=== PATIENT | female | born 1945 | race Caucasian/White ===

== ENCOUNTER 2016-08-13 10:29 | Inpatient (IN) | payer OTHER, MEDICARE ==
[2016-07-16 09:45] VITALS: BMI 40.0
--- NOTE | 2016-07-16 10:22 | PAT Medication Instructions ---
Service Date Jul 16, 2016. Current Home Medication List Acetaminophen Tab (Tylenol), 650 MG PO Q4 PRN for Pain Gabapentin (Neurontin), 300 MG PO BID Hydrochlorothiazide (Hctz), 1 TAB PO QAM Lisinopril (Lisinopril), 40 MG PO QAM Metoprolol Succ (Toprol Xl) (Toprol-Xl), 1 TAB PO BID Pravastatin (Pravachol ), 40 MG PO QPM Ranitidine (Zantac), 1 TAB PO BID Verapamil Sust Rel (Calan Sr Ext Rel), 240 MG PO HS Warfarin Sod (Jantoven), 1.5 MG PO 1600 Medication Instructions For Your Scheduled Surgery - Instructions to be given by prescribing physician: Warfarin Sod (Coumadin), 1.5 MG PO 1600 - Hold the following medications the morning of surgery: Hydrochlorothiazide (Hctz), 1 TAB PO QAM Lisinopril (Lisinopril), 40 MG PO QAM - Take the following medications the morning of surgery with a sip of water OTHERWISE NOTHING TO EAT OR DRINK AFTER MIDNIGHT : Acetaminophen Tab (Tylenol), 650 MG PO Q4 PRN for Pain (may take up to 4 hours prior to surgery if needed) Ranitidine (Zantac), 1 TAB PO BID Gabapentin (Neurontin), 300 MG PO BID Metoprolol Succ (Toprol Xl) (Toprol-Xl), 1 TAB PO BID - Take the following medications as scheduled the night before surgery: Acetaminophen Tab (Tylenol), 650 MG PO Q4 PRN for Pain Ranitidine (Zantac), 1 TAB PO BID Gabapentin (Neurontin), 300 MG PO BID Metoprolol Succ (Toprol Xl) (Toprol-Xl), 1 TAB PO BID Pravastatin (Pravachol ), 40 MG PO QPM Verapamil Sust Rel (Calan Sr Ext Rel), 240 MG PO HS If you have any questions please call us at [phone] (Ana Laura Goncalves PA-C ) or [phone] or [phone]
--- NOTE | 2016-07-16 10:54 | DIAGNOSTIC IMAGING REPORT ---
CHEST PREADMISSION(PA/LAT) CLINICAL HISTORY: Preoperative evaluation. COMPARISON STUDY: No previous studies for comparison. FINDINGS: Lung volumes are normal. There is no consolidation. There is no evidence of pulmonary edema. There are median sternotomy wires, a dual lead left subclavian pacemaker and a prosthetic cardiac valve. Mild cardiomegaly is noted. There is no evidence of pulmonary edema. IMPRESSION: 1. No acute cardiopulmonary findings. 2. Mild cardiomegaly. Electronically signed by: Dakotah Zambrano M.D. 07/16/2016 10:52 AM
[2016-07-16 11:16] LABS: BASO % 0.1 %; BASO ABS # 0.01 K/uL (0-0.2); COMPLETE YES; EOS % 2.2 %; IG% 0.1 %; LYMPH % 30.7 %; LYMPH ABS # 2.05 K/uL (1.2-3.4); MEAN CELL VOLUME 87.6 fL (80-100); MEAN CORPUSCULAR HEMOGLOBIN 28.2 pg (25-34); MEAN CORPUSCULAR HGB CONC 32.2 g/dl (32-36); MEAN PLATELET VOLUME 10.4 fL (7.4-10.4); MONO % 9.1 %; NEUT % 57.8 %; PLATELET COUNT 220 K/uL (130-400); RED BLOOD COUNT 4.11 M/uL (4.2-5.4); WHITE BLOOD COUNT 6.68 K/uL (4.8-10.8)
[2016-07-16 11:17] LABS: URINE APPEARANCE CLEAR (CLEAR); URINE BILIRUBIN NEG (NEG); URINE COLOR YELLOW; URINE NITRITE NEG (NEG); URINE PH 6.5 (4.5-7.5); URINE SPECIFIC GRAVITY 1.017 (1.000-1.030); UROBILINOGEN NEG (NEG)
[2016-07-16 11:32] LABS: MANUAL MICROSCOPIC REQUIRED? NO; REVIEW REQ? NO
[2016-07-16 11:46] LABS: BUN/CREATININE RATIO 22.2 (10-20); CREATININE 0.72 mg/dl (0.60-1.20); POTASSIUM 3.9 mmol/L (3.5-5.1)
[2016-07-16 12:05] LABS: CALCIUM 9.2 mg/dl (8.5-10.1)
--- NOTE | 2016-08-09 16:09 | HISTORY & PHYSICAL EXAMINATION ---
DATE OF ADMISSION: 08/13/2016 HISTORY OF PRESENT ILLNESS: This is a 70-year-old female with complaint of back and bilateral leg pain. Symptoms are reproduced with standing and ambulation. She has trialed nonoperative care with only moderate relief. Denies bowel or bladder dysfunction. PAST MEDICAL HISTORY: Significant for hypertension and irregular heartbeat. PAST SURGICAL HISTORY: Significant for open heart surgery, pacemaker implant, and x2. ALLERGIES: None. MEDICATIONS: Include metoprolol, hydrochlorothiazide, ranitidine, VESIcare, verapamil extended release, pravastatin, aspirin, lisinopril, and oxybutynin, all dosages unknown. SOCIAL HISTORY: She is . She has 2 children. Denies alcohol. Denies tobacco. She is retired. REVIEW OF SYSTEMS: Noncontributory. PHYSICAL EXAMINATION: HEENT: Speech appropriate. CARDIOPULMONARY: No gross abnormalities. ABDOMEN: Soft, nontender. GENITOURINARY: Deferred. NEUROLOGIC: Cranial nerves II-XII grossly intact. MUSCULOSKELETAL: She moves slowly around the room. No focal atrophy. LOWER EXTREMITY: Strength is intact bilateral lower extremities. ASSESSMENT: Vacuum phenomenon at L4-5, severe stenosis L4-5 and foraminal stenosis L5-S1. PLAN: At this point in time, she has failed nonoperative care and may consider surgical intervention which would require lumbar decompression and fusion L2-3, L3-4, L4-5 and L5-S1. Risks, benefits, pros, cons, and alternatives were outlined in detail. She would like to proceed with the above-mentioned surgical intervention.
[~2016-08-13] VITALS: Ht 160 cm; Wt 104.6 kg
--- NOTE | 2016-08-13 07:28 | History & Physical Bridge Note ---
H&P Re-Evaluation Bridge Note: I have examined the patient, reviewed the History & Physical and in the interval since the performance of the History & Physical I have noted the following changes of clinical significance: No changes noted
[~2016-08-13 10:29] MED LIST: ACET325T96 PO; CEFAZOLIN 2000 MG/60 ML D5W IV SCH; GABA-113 PO; HYDR25TA4 PO; LACTATED RINGER'S 1000ML 1,000 ML IV SCH; LSN40 PO; METO50TA7 PO; PRAV20TA PO; VERA240T20 PO; WARF1TAB6 PO; ZNTT/150 PO
[2016-08-13 10:51] VITALS: BP 133/82; PULSE 66; TEMP 36.5; O2SAT 97; BMI 40.0
[2016-08-13] MEDS ORDERED: FENTANYL CITRATE INJ 50 MCG/1 ML 2 ML VIAL ONE ×3 (11:30→13:07)
[2016-08-13] MEDS ORDERED: MIDAZOLAM HCL 1 MG/ML 2ML VIAL ONE (11:31)
[2016-08-13] MEDS ORDERED: HYDROmorphone INJ 2 MG/ML SYR/VIAL ONE (13:07)
[2016-08-13] MEDS ORDERED: BUPIVACAINE/EPINEPHRINE 0.5% MPF 1:200,000 30 ML VIAL INJ ONE (13:20)
[2016-08-13] MEDS ORDERED: GLYCOPYRROLATE INJ 0.2 MG/ML VIAL ONE (13:27)
[2016-08-13] MEDS ORDERED: DEXAMETHASONE SOD INJ 4 MG/ML VIAL ONE (13:27)
[2016-08-13] MEDS ORDERED: LIDOCAINE HCL 2% 2 ML VIAL (20MG/ML) ONE (13:27)
[2016-08-13] MEDS ORDERED: NEOSTIGMINE METHYLSULFATE 1 MG/ML 10ML VIAL ONE (13:27)
[2016-08-13] MEDS ORDERED: PROPOFOL IV EMULSION 10 MG/ML 20 ML VIAL IV ONE (13:27)
[2016-08-13] MEDS ORDERED: ONDANSETRON INJ 2 MG/ML 2 ML VIAL ONE (13:27)
[2016-08-13] MEDS ORDERED: EpHEDrine SULFATE 50MG/5ML SYR ONE (13:27)
[2016-08-13] MEDS ORDERED: ROCURONIUM BROMIDE 10 MG/ML 5 ML VIAL ONE (13:27)
[2016-08-13] MEDS ORDERED: PHENYLEPHRINE 100MCG/ML 5ML SYR ONE ×2 (13:40→14:50)
[2016-08-13] MEDS ORDERED: LABETALOL HCL IV 5 MG/ML 20ML IV PRN (14:45)
[2016-08-13] MEDS ORDERED: ONDANSETRON INJ 2 MG/ML 2 ML VIAL IV PRN ×2 (14:45→15:30)
[2016-08-13] MEDS ORDERED: HYDROmorphone INJ 1 MG/ML SYR IV PRN (14:45)
[2016-08-13] MEDS ORDERED: EpHEDrine SULFATE INJ 50 MG/ML AMP IV PRN (14:45)
[2016-08-13] MEDS ORDERED: ATROPINE SULFATE 0.1 MG/ML 5ML SYR IV PRN (14:45)
[2016-08-13] MEDS ORDERED: FENTANYL CITRATE INJ 50 MCG/1 ML 2 ML VIAL IV PRN (14:45)
[2016-08-13] MEDS ORDERED: MEPERIDINE HCL 25 MG/ML CARP IV PRN (14:45)
[2016-08-13] MEDS ORDERED: VOLUVEN IN NSS ONE (15:03)
[2016-08-13] MEDS ORDERED: SODIUM CHLORIDE 0.9% 1000ML 1,000 ML IV SCH (15:21)
--- NOTE | 2016-08-13 15:21 | [facility] Post Operative Brief Note ---
Immediate Operative Summary Operative Date Aug 13, 2016. Pre-Operative Diagnosis Vacuum phenomenon at L4-L5; Severe stenosis L4-L5; Foraminal stenosis L5-S1 Post-Operative Diagnosis Vacuum phenomenon at L4-L5; Severe stenosis L4-L5; Foraminal stenosis L5-S1 Procedure(s) Performed L2-S1 Lumbar Laminectomy; Decompression; Pedicle Screw Fixation; Placement of Interbody Device; Posterolateral Fusion;Bone Morphogenetic Protein; Iliac [place] Fixation; [place] Surgeon Dr. Karthikeyan Strauss Abalone Fisherman Surgeon(s) Nancy Alvarado PA-C Estimated Blood Loss 500 Findings stenosis Specimens None per surgeon
[2016-08-13] MEDS ORDERED: BACITRACIN 50000 UNIT VIAL IR ONE (15:29)
[2016-08-13] MEDS ORDERED: hydrOXYzine HCL 25 MG TAB PO PRN (15:30)
[2016-08-13] MEDS ORDERED: ACETAMINOPHEN IV 100 ML IV PRN (15:30)
[2016-08-13] MEDS ORDERED: DO NOT ADMINISTER FLU VACCINE PRN ×3 (15:30)
[2016-08-13] MEDS ORDERED: SOD PHOSPHATE/SOD BIPHOSPHATE ENEMA 132 ML BTL PR PRN (15:30)
[2016-08-13] MEDS ORDERED: ACETAMINOPHEN 500 MG TAB PO PRN (15:30)
[2016-08-13] MEDS ORDERED: METOCLOPRAMIDE HCL INJ 5 MG/ML 2 ML VIAL IV PRN (15:30)
[2016-08-13] MEDS ORDERED: BISACODYL 10 MG SUPP PR PRN (15:30)
[2016-08-13] MEDS ORDERED: PROMETHAZINE HCL INJ 12.5 MG in SODIUM CHLORIDE 0.9% 50ML 50 ML IV PRN (15:30)
[2016-08-13] MEDS ORDERED: LORAZEPAM INJ 0.5 MG in SYRINGE 0 ML IV PRN (15:30)
[2016-08-13] MEDS ORDERED: NALOXONE HCL 0.4 MG/1 ML VIAL/CARP IV PRN ×2 (15:30)
[2016-08-13] MEDS ORDERED: ALUMINUM/MAGNESIUM SUSP 30 ML UDC PO PRN (15:30)
[2016-08-13] MEDS ORDERED: LORAZEPAM 0.5 MG TAB PO PRN (15:30)
[2016-08-13] MEDS ORDERED: FAMOTIDINE 20 MG TAB PO PRN (15:30)
[2016-08-13] MEDS ORDERED: MAGNESIUM HYDROXIDE SUSP 30 ML UDC PO PRN (15:30)
[2016-08-13] MEDS ORDERED: DO NOT ADMINISTER PNEUMOCOCCAL VACCINE PRN ×2 (15:30)
[2016-08-13] MEDS ORDERED: FLOSEAL HEMOSTATIC MATRIX 10ML TOP ONE (15:32)
--- NOTE | 2016-08-13 15:53 | OPERATIVE REPORT ---
DATE OF OPERATION: 08/13/2016 PREOPERATIVE DIAGNOSIS: Spinal stenosis. POSTOPERATIVE DIAGNOSIS: Same. PROCEDURES PERFORMED: 1. Lumbar decompression, medial facetectomy, and foraminotomy, L2-L3, L3-L4, L4-L5, and L5-S1. 2. Posterior spinal fusion, L2-L3, L3-L4, L4-L5, and L5-S1. 3. Bilateral posterior SI joint fusions. 4. Placement of posterior segmental instrumentation using Orthros rods and screws, L2 to S1 including bilateral iliac bolts. 5. Interbody fusion, L4-L5. 6. Placement of PEEK cage 10 x 26 mm at L4-L5. 7. Placement of locally harvested morcellized autograft in the posterior gutters 8. Placement of Infuse collagen sponge combined with Mastergraft in the posterior gutters and Yu in the interbody space. SURGEON: Dr. Karthikeyan Strauss. CLINICAL SAFETY SPECIALIST: Nancy Alvarado PA-C. Due to the complex nature of the procedure, the entire surgery was performed with the assistant director of residence life of BALTAZAR Ortiz. The assistant professor nurse education, under direct supervision, was involved in the actual performance of all aspects of the surgical procedure including hemostasis, tissue retraction and incision, instrument management, patient positioning, and wound closure. ANESTHESIA: General. DISPOSITION: The patient awakened and taken to PACU in stable condition. HISTORY OF PATIENT'S PROBLEMS: This is a 70-year-old female that presents with above-mentioned diagnosis. After failing an extensive course of nonoperative care, she elected to undergo the above-mentioned procedures. Risks, benefits, pros, cons, and alternatives were outlined in detail preoperatively. DESCRIPTION OF PROCEDURE: The patient was met with preoperatively, case discussed and all questions were addressed. At that point, the patient was taken back to operative suite and after undergoing successful general intubation by the department of anesthesia, she was placed in prone position on William table atop Mitchel frame. All bony prominences were well padded and the eyes were inspected to ensure there was no external pressure placed upon them. At this point, lumbar spine was prepped and draped in the normal sterile fashion. Sharp dissection with the assistance of Bovie cautery was performed down to and exposing the lamina and transverse processes of L2, L3, L4, L5 and sacral ala bilaterally. From a caudal to cephalad fashion, laminectomy of L5, L4, L3 and L2 was performed addressing severe lateral recess and foraminal stenosis. Pedicle screws were then placed in L2, L3, L4, L5 and S1 levels as well as bilateral iliac bolts. Again, through a transforaminal approach on the left, a complete diskectomy of L4-L5 was performed, endplates curetted to subcortical bleeding bone and a 10 x 26 mm PEEK cage filled with Yu bone grafting tapped into position. Appropriate size rods were then placed, locked into final position bilaterally and transverse processes of L2, L3, L4, L5 and sacral ala and the bilateral SI joints were burred to subcortical bleeding bone. Infuse collagen sponge combined with Mastergraft and locally harvested morselized was packed in the SI joints in the posterolateral gutters. A 7 flat ZACH drain was inserted. Incision was closed with 1-0 Vicryl in the fascia, 2-0 Vicryl subcutaneously, and 4-0 Monocryl for final skin closure. Steri-Strips and sterile dressing placed. The patient was awakened and taken to PACU in stable condition. I attest to the content of the Intraoperative Record and any orders documented therein. Any exceptio ns are noted below.
--- NOTE | 2016-08-13 15:54 | DIAGNOSTIC IMAGING REPORT ---
INTRAOPERATIVE FLUOROSCOPIC IMAGES OF THE LUMBAR SPINE CLINICAL HISTORY: L2-S1 DECOMPRESSION COMPARISON STUDY: CT lumbar myelogram April 25, 2016 Fluoroscopy time: 36.5 seconds. FINDINGS: 4 fluoroscopic images were obtained. These demonstrate an L4-L5 discectomy with interbody spacer placement. There are bilateral pedicle screws at the L2, L3, L4, L5 and S1 levels. There are iliac bolts. There are interconnecting rods. IMPRESSION: Fluoroscopic images demonstrate an L4-L5 discectomy and L2-S1 bilateral pedicle screw fusion. Electronically signed by: Dakotah Zambrano M.D. 08/13/2016 3:52 PM Dictated Date/Time: 08/13/2016 3:50 PM
[2016-08-13] MEDS: HYDROmorphone HCL 0.5MG/ML 50 ML CASSETTE IV PRN ×3 (16:00→22:50)
--- NOTE | 2016-08-13 16:46 | Anesthesiology Progress Note ---
Anesthesia Post Op Note Date & Time Aug 13, 2016 at 16:45 Vital Signs Pain Intensity: 3 Vital Signs Past 12 Hours Date Time Temp Pulse Resp B/P Pulse Ox O2 Delivery O2 Flow Rate FiO2 08/13/16 16:30 68 18 141/52 96 Nasal Cannula 4 08/13/16 16:20 68 18 141/57 94 Nasal Cannula 4 08/13/16 16:10 67 18 145/47 91 Mask 10 08/13/16 16:00 75 18 155/59 97 Mask 10 08/13/16 15:52 37.1 80 14 161/73 98 Mask 10 08/13/16 10:51 36.5 66 20 133/82 97 Room Air Notes Mental Status: alert / awake / arousable, participated in evaluation Pt Amnestic to Procedure: Yes Nausea / Vomiting: adequately controlled Pain: adequately controlled Airway Patency, RR, SpO2: stable & adequate BP & HR: stable & adequate Hydration State: stable & adequate Anesthetic Complications: no major complications apparent
[2016-08-13] MEDS: LACTATED RINGER'S 1000ML 1,000 ML IV SCH ×2 (17:30→23:00)
[2016-08-13 17:40] VITALS: BP 126/48; PULSE 69; TEMP 36.4; O2SAT 96
[2016-08-13 18:11] VITALS: BP 119/64; PULSE 71; TEMP 36.4; O2SAT 96
--- NOTE | 2016-08-13 18:47 | Medical Consult ---
Consultation Date of Consultation: Aug 13, 2016. Attending Physician: Karthikeyan Strauss D.O. Reason for Consultation: medical mgmt History of Present Illness This is a 70 y/o female with PMHx of Atrial Fibrillation on Coumadin, HTN, Dyslipidemia and other problems as outlined below who presents POD 0 s/p lumbar decompression performed by Dr. Strauss. Pt was nauseated post-operatively and vomited twice. Per , patient always feels this way after anesthesia. Pt is still very groggy. She is comfortable laying still but having lower back discomfort with movement. Pt denies fever/chills, chest pain, palpitations, SOB , abd pain, bowel or bladder issues, LE edema ,calf pain, lightheadedness/ dizziness. Past Medical/Surgical History Medical Problems: (1) Atrial fibrillation Status: Chronic (2) Dyslipidemia Status: Chronic (3) GERD (gastroesophageal reflux disease) Status: Chronic (4) HTN (hypertension) Status: Chronic Surgical Problems: (1) History of orthopedic surgery Permanent Comment: R thumb fusion; 2003 Status: Resolved (2) Hx of decompressive lumbar laminectomy Permanent Comment: 08/13/16 Dr. Strauss Status: Resolved Social History Smoking Status: Never Smoker Alcohol Use: none Drug Use: none Marital Status: Housing Status: lives with family Allergies Coded Allergies: Oxycodone (Verified Adverse Reaction, Unknown, nausea,hallucinations, 08/13) Home Medications Active Reported Neurontin (Gabapentin) 300 Mg Cap 300 Mg PO BID Tylenol (Acetaminophen) 325 Mg Tab 650 Mg PO Q4 PRN Jantoven (Warfarin Sodium) 1 Mg Tab 1.5 Mg PO 1600 Calan Sr Ext Rel (Verapamil HCl) 240 Mg Tabcr 240 Mg PO HS Pravachol (Pravastatin Sodium) 20 Mg Tab 40 Mg PO QPM Lisinopril 40 Mg Tab 40 Mg PO QAM Zantac (Ranitidine HCl) 150 Mg Tab 1 Tab PO BID 30 Days Hctz (Hydrochlorothiazide) 25 Mg Tab 1 Tab PO QAM 30 Days Toprol-Xl (Metoprolol Succinate) 50 Mg Tabcr 1 Tab PO BID 30 Days Current Inpatient Medications Current Inpatient Medications Medications (Trade) Dose Ordered Sig/Francois Route Start Time Stop Time Status Last Admin Dose Admin Lactated Ringer's (Lr 1000ml) 1,000 ml @ 15 mls/hr Q24H IV 08/13/16 06:00 08/14/16 05:59 08/13/16 11:50 15 MLS/HR Fentanyl Citrate (Fentanyl Inj) 50 mcg Q5M PRN IV 08/13/16 14:45 08/13/16 19:45 08/13/16 16:07 50 MCG Hydromorphone HCl (Dilaudid Inj) 0.5 mg Q5M PRN IV 08/13/16 14:45 08/13/16 19:45 Meperidine HCl (Demerol Inj) 25 mg Q5M PRN IV 08/13/16 14:45 08/13/16 19:45 Ondansetron HCl (Zofran Inj) 4 mg ONE PRN IV 08/13/16 14:45 08/13/16 19:45 08/13/16 16:28 4 MG Labetalol HCl (Normodyne IV) 5 mg Q5M PRN IV 08/13/16 14:45 08/13/16 19:45 Ephedrine Sulfate (EpHEDrine SULFATE INJ) 5 mg Q5M PRN IV 08/13/16 14:45 08/13/16 19:45 Atropine Sulfate 0.5 mg 0.5 mg Q1M PRN IV 08/13/16 14:45 08/13/16 19:45 Dexamethasone Sodium Phosphate 6 mg/Syringe 1.5 ml @ 1 mls/min Q8H IV 08/13/16 20:00 08/14/16 12:02 Promethazine HCl/ Sodium Chloride (Phenergan Inj/ Nss 50ml) 50.5 ml @ 202 mls/hr Q6H PRN IV 08/13/16 15:30 09/12/16 15:29 Ondansetron HCl (Zofran Inj) 4 mg Q6H PRN IV 08/13/16 15:30 09/12/16 15:29 Metoclopramide HCl (Reglan Inj) 10 mg Q6H PRN IV 08/13/16 15:30 09/12/16 15:29 Lorazepam 0.5 mg 0.5 mg Q8H PRN PO 08/13/16 15:30 09/12/16 15:29 Lorazepam/Syringe (Ativan Inj/ Syringe) 0.25 ml @ 1 mls/min Q8H PRN IV 08/13/16 15:30 09/12/16 15:29 Pneumococcal Polysaccharide Vaccine 1 ea PRN PRN N/A 08/13/16 15:30 09/12/16 15:29 Influenza Virus Vacc Triv Types A&B 1 ea PRN PRN N/A 08/13/16 15:30 09/12/16 15:29 Polyethylene (Miralax Powder Packet) 17 gm Q6 PO 08/15/16 06:00 09/14/16 05:59 Bisacodyl (Dulcolax Supp) 10 mg DAILY PRN ND 08/13/16 15:30 09/12/16 15:29 Magnesium Hydroxide (Milk Of Magnesia Susp) 30 ml DAILY PRN PO 08/13/16 15:30 09/12/16 15:29 Hydromorphone HCl (Dilaudid Inj) 0.5 mg Q3H PRN IV 08/14/16 06:00 08/28/16 05:59 Acetaminophen/ Hydrocodone Bitart 1-2 tabs prn moder... Q4H PRN PO 08/14/16 06:00 08/28/16 05:59 Cefazolin Sodium 2000 mg/Dextrose 60 ml @ 100 mls/hr Q8H IV 08/13/16 20:00 08/14/16 04:35 Lactated Ringer's (Lr 1000ml) 1,000 ml @ 150 mls/hr Q6H40M IV 08/13/16 17:30 09/12/16 17:29 Acetaminophen 1000 mg 1,000 mg Q8H PRN PO 08/13/16 15:30 09/12/16 15:29 Acetaminophen (Ofirmev Iv) 100 ml @ 400 mls/hr Q8H PRN IV 08/13/16 15:30 09/12/16 15:29 Naloxone HCl (Narcan Inj) 0.1 mg Q5M PRN IV 08/13/16 15:30 09/12/16 15:29 Senna/Docusate Sodium (Senokot S Tab) 2 tab HS PO 08/13/16 21:00 09/12/16 20:59 Sodium Biphosphate/ Sodium Phosphate (Fleet Enema) 132 ml ONE PRN ND 08/13/16 15:30 09/12/16 15:29 Hydroxyzine HCl (Vistaril Tab) 25 mg Q8H PRN PO 08/13/16 15:30 09/12/16 15:29 Al Hydroxide/Mg Hydroxide (Maalox Susp) 30 ml Q6H PRN PO 08/13/16 15:30 09/12/16 15:29 Famotidine (Pepcid Tab) 20 mg Q12H PRN PO 08/13/16 15:30 09/12/16 15:29 Diphenhydramine HCl (Benadryl Cap) 25 mg Q6H PRN PO 08/13/16 15:30 09/12/16 15:29 Miscellaneous Information (Discontinue COUNSELING SERVICES DIRECTOR) 1 ea TODAY@0600 N/A 08/14/16 06:00 08/14/16 06:01 Naloxone HCl (Narcan Inj) 0.1 mg Q5M PRN IV 08/13/16 15:30 08/14/16 06:00 Hydromorphone HCl 25 mg 25 mg PRN PRN IV 08/13/16 15:30 08/14/16 06:00 08/13/16 17:14 25 MG Sodium Chloride (Nss 1000ml) 1,000 ml @ 15 mls/hr Q24H IV 08/13/16 15:21 08/14/16 06:00 Gabapentin (Neurontin Cap) 300 mg BID PO 08/13/16 21:00 09/12/16 20:59 Hydrochlorothiazide (Hydrochlorothiazide Tab) 25 mg QAM PO 08/14/16 09:00 09/13/16 08:59 Lisinopril (Zestril Tab) 40 mg QAM PO 08/14/16 09:00 09/13/16 08:59 Metoprolol Succinate (Toprol Xl Tab) 50 mg BID PO 08/13/16 21:00 09/12/16 20:59 Pravastatin Sodium (Pravachol Tab) 40 mg QPM PO 08/13/16 21:00 09/12/16 20:59 Ranitidine HCl (zANTac TAB) 150 mg BID PO 08/13/16 21:00 09/12/16 20:59 Verapamil HCl (Calan-Sr Tab) 240 mg HS PO 08/13/16 21:00 09/12/16 20:59 Hydromorphone HCl (Dilaudid Inj) 1 mg Q3H PRN IV 08/14/16 06:00 08/28/16 05:59 Review of Systems Constitutional: + fatigue, No chills, No fever, No sweats, No weakness Eyes: No worsening of vision Respiratory: No cough, No shortness of breath Cardiovascular: No chest pain, No claudication, No edema, No palpitations Abdomen: + nausea, + vomiting, No constipation, No diarrhea, No pain Musculoskeletal: No calf pain, No swelling Genitourinary - Female: No dysuria Neurologic: No weakness Psychiatric: No depression symptoms Endocrine: + fatigue Hematologic / Lymphatic: No abnormal bleeding/bruising Integumentary: No new/changing skin lesions Physical Exam Date Time Temp Pulse Resp B/P Pulse Ox O2 Delivery O2 Flow Rate FiO2 08/13/16 16:50 36.4 73 18 145/54 96 Nasal Cannula 4 08/13/16 16:40 36.4 78 18 135/63 96 Nasal Cannula 4 08/13/16 16:30 68 18 141/52 96 Nasal Cannula 4 08/13/16 16:20 68 18 141/57 94 Nasal Cannula 4 08/13/16 16:10 67 18 145/47 91 Mask 10 08/13/16 16:00 75 18 155/59 97 Mask 10 08/13/16 15:52 37.1 80 14 161/73 98 Mask 10 08/13/16 10:51 36.5 66 20 133/82 97 Room Air General Appearance: WD/WN, no apparent distress, + pertinent finding (Pt is laying in bed ) Head: normocephalic, atraumatic Eyes: normal inspection ENT: hearing grossly normal Neck: supple Respiratory/Chest: chest non-tender, lungs clear (auscultated anteriorly), normal breath sounds, no respiratory distress Cardiovascular: regular rate, rhythm, no edema, no murmur Abdomen/GI: normal bowel sounds, non tender, soft Back: + pertinent finding (surgical dressing in place over lumbar spine with 1 drain noted containing blood ) Extremities/Musculoskelatal: normal inspection (SCDs in place), no calf tenderness, no pedal edema Neurologic/Psych: alert, normal mood/affect, oriented x 3 Skin: normal color, warm/dry Assessment & Plan SPINAL STENOSIS S/P LUMBAR DECOMPRESSION -POD 0; surgery performed by Dr. Strauss -post-operative pain well managed -monitor for acute blood loss with daily H&H -hold Coumadin until cleared with surgical team -pt encouraged to utilize spirometry to prevent post-op infection -PT/OT -activity and wound care orders per ortho protocol -will continue to follow NAUSEA: IMPROVING -2 episodes of vomiting post-op; likely anesthesia related -cont anti-emetics PRN ATRIAL FIBRILLATION -hold Coumadin until cleared with surgical team -cont metoprolol -monitor GERD -cont ranitidine HTN -BP stable -cont HCTZ, lisinopril, verapamil and metoprolol -monitor DYSLIPIDEMIA -cont statin DVT PROPHYLAXIS -per ortho protocol CODE STATUS -FULL CODE status DISPO -per ortho. Pt seen in collaboration with Dr. Sood. Please see her addendum for further details. Thanks! Thank you for this consultation. We will follow the patient with you during their hospital stay. You can reach a member of the [facility] via pager @ [phone]. I have seen, examined and discussed this patient with Allie Leal and I agree with the above note. Patient is post-op lumbar surgery. Post-op nausea has improved. Pain is tolerable. Vitals reviewed and stable. PE: General- groggy but answering questions appropriately Eyes- EOMI; no scleral icterus Neck- no stridor; trachea midline Lungs- CTA anteriorly; no wheezes/crackles Heart- RRR; no m/r/g Abdomen- soft; NTND; nBS Back- unable to examine Extremities- SCD's in place; no c/c/e; no deformity Neuro- no gross focal deficits Skin- no appreciable rash or bruise Labs, imaging reviewed. HTN: Controlled. Continue outpatient regimen. A fib: Rate control with Metoprolol and Verapamil. Resume Coumadin when OK with Ortho. Agree with remainder of plan as outlined above. Patient will be followed by Dr. Torres starting 08/14/16.
[2016-08-13 20:18] VITALS: BP 126/67; PULSE 82; TEMP 36.7; O2SAT 97
[2016-08-13] MEDS: DEXAMETHASONE INJ 6 MG in SYRINGE 0 ML IV SCH (20:21)
[2016-08-13] MEDS: CEFAZOLIN IV 2,000 MG in DEXTROSE 5% 50ML 50 ML IV SCH (20:39)
[2016-08-13] MEDS ORDERED: VERAPAMIL HCL 240 MG TABCR PO SCH (21:00)
[2016-08-13 21:20] VITALS: BP 133/75; PULSE 77
[2016-08-13] MEDS: PRAVASTATIN SOD 20 MG TAB PO SCH (21:24)
[2016-08-13] MEDS: DOCUSATE SODIUM/SENNA 50/8.6MG TAB PO SCH (21:24)
[2016-08-13] MEDS: METOPROLOL SUCC 50MG EXT REL TAB PO SCH (21:24)
[2016-08-13] MEDS: RANITIDINE HCL 150 MG TAB PO SCH (21:24)
[2016-08-13] MEDS: GABAPENTIN 300 MG CAP PO SCH (21:24)
[2016-08-13 23:08] VITALS: BP 130/73; PULSE 81; TEMP 36.4; O2SAT 96
[2016-08-14] VITALS (8 sets, daily range): BP systolic 99–126; BP diastolic 56–75; PULSE 62–83; TEMP 36.6–36.9; O2SAT 93–97
[2016-08-14] MEDS: DEXAMETHASONE INJ 6 MG in SYRINGE 0 ML IV SCH ×2 (03:31→12:07)
[2016-08-14] MEDS: CEFAZOLIN IV 2,000 MG in DEXTROSE 5% 50ML 50 ML IV SCH (03:32)
[2016-08-14] MEDS: LACTATED RINGER'S 1000ML 1,000 ML IV SCH (05:55)
[2016-08-14] MEDS ORDERED: HYDROmorphone INJ 0.5 MG/0.5 ML SYR IV PRN (06:00)
[2016-08-14] MEDS ORDERED: DC PCA SCH (06:00)
[2016-08-14] MEDS ORDERED: HYDROmorphone INJ 1 MG/ML SYR IV PRN (06:00)
--- NOTE | 2016-08-14 06:36 | DIAGNOSTIC IMAGING REPORT ---
LEFT LOWER EXTREMITY VENOUS DOPPLER CLINICAL HISTORY: Left calf pain. COMPARISON STUDY: No previous studies for comparison. TECHNIQUE: Sonography of the deep venous system of the left lower extremity was performed. Compression and augmentation were evaluated. FINDINGS: The common femoral, superficial femoral and popliteal veins were compressible. Augmentation was normal. Flow was shown within the deep calf vessels although evaluation was compromised by suboptimal penetration. IMPRESSION: No evidence of deep venous thrombus within the left lower extremity. Electronically signed by: Dakotah Zambrano M.D. 08/14/2016 6:34 AM Dictated Date/Time: 08/14/2016 6:34 AM
[2016-08-14 06:53] LABS: COMPLETE YES; HEMATOCRIT 27.8 % (37-47); IG% 0.5 %; LYMPH % 7.7 %; LYMPH ABS # 1.16 K/uL (1.2-3.4); MEAN CELL VOLUME 86.3 fL (80-100); MEAN CORPUSCULAR HEMOGLOBIN 29.2 pg (25-34); MEAN CORPUSCULAR HGB CONC 33.8 g/dl (32-36); MEAN PLATELET VOLUME 10.2 fL (7.4-10.4); MONO % 3.7 %; NEUT % 88.1 %; PLATELET COUNT 209 K/uL (130-400); RED BLOOD COUNT 3.22 M/uL (4.2-5.4); WHITE BLOOD COUNT 15.08 K/uL (4.8-10.8)
[2016-08-14 07:20] LABS: BUN/CREATININE RATIO 21.1 (10-20); CALCIUM 8.5 mg/dl (8.5-10.1); CREATININE 0.94 mg/dl (0.60-1.20); POTASSIUM 4.4 mmol/L (3.5-5.1)
--- NOTE | 2016-08-14 07:56 | Anesthesiology Progress Note ---
Anesthesia Post Op Note Date & Time Aug 14, 2016 at 07:55 Vital Signs Pain Intensity: 0.0 Vital Signs Past 12 Hours Date Time Temp Pulse Resp B/P Pulse Ox O2 Delivery O2 Flow Rate FiO2 08/14/16 07:04 36.6 75 19 121/69 93 Room Air 08/14/16 03:13 36.6 83 16 126/75 96 08/13/16 23:08 36.4 81 18 130/73 96 Nasal Cannula 4.0 08/13/16 23:00 Nasal Cannula 4.0 08/13/16 21:20 77 133/75 08/13/16 20:18 36.7 82 16 126/67 97 Nasal Cannula 4.0 Notes Mental Status: alert / awake / arousable, participated in evaluation Pt Amnestic to Procedure: Yes Nausea / Vomiting: adequately controlled Pain: adequately controlled Airway Patency, RR, SpO2: stable & adequate BP & HR: stable & adequate Hydration State: stable & adequate Anesthetic Complications: no major complications apparent
--- NOTE | 2016-08-14 08:39 | PROGRESS NOTE ---
DATE: 08/14/2016 SUBJECTIVE: Back pain is controlled. Leg pain markedly improved. Vital signs stable. T-max 36.6. ZACH drained 90 mL. Hematocrit this a.m. is 27.8. On exam, she has good strength to testing, sitting in chair. Is comfortable. ASSESSMENT: Status post lumbar decompression and fusion. PLAN: At this time, will initiate physical therapy, advance her bowel regimen, consider home Saturday or with home health.
[2016-08-14] MEDS: GABAPENTIN 300 MG CAP PO SCH ×2 (08:53→20:45)
[2016-08-14] MEDS: RANITIDINE HCL 150 MG TAB PO SCH ×2 (08:53→20:45)
[2016-08-14] MEDS: METOPROLOL SUCC 50MG EXT REL TAB PO SCH (08:53)
[2016-08-14] MEDS ORDERED: HYDROCHLOROTHIAZIDE 25 MG TAB PO SCH (09:00)
[2016-08-14] MEDS ORDERED: LISINOPRIL 40 MG TAB PO SCH (09:00)
[2016-08-14] MEDS ORDERED: NURSING VERBAL MED ORDER ONE (14:30)
--- NOTE | 2016-08-14 18:19 | Progress Note ---
Medicine Progress Note Date & Time of Visit: Aug 14, 2016 at 18:16. Subjective seen resting in bed, comfortable back pain well controlled denies chest pain, dyspnea, dizziness, palpitations, nausea no other symptoms Objective Last 8 Hrs Date Time Temp Pulse Resp B/P Pulse Ox O2 Delivery O2 Flow Rate FiO2 08/14/16 15:04 36.8 62 17 99/56 96 Room Air 08/14/16 10:53 36.8 65 19 106/63 95 Room Air Physical Exam: General-oriented x3 , not in distress Head- atraumatic Eyes-EOMI, anicteric Neck- supple, no JVD Lungs- clear to auscultation b/l Heart-normal rate, regular rhythm; no murmurs Abdomen- normal bowel sounds, soft, nontender Extremities-mild left lower leg edema, no warmth/tenderness right leg essentially normal Neuro- alert, oriented x 3;no gross deficits Skin- warm & dry Laboratory Results: Last 24 Hours Test 08/14/16 06:16 White Blood Count 15.08 K/uL Red Blood Count 3.22 M/uL Hemoglobin 9.4 g/dL Hematocrit 27.8 % Mean Corpuscular Volume 86.3 fL Mean Corpuscular Hemoglobin 29.2 pg Mean Corpuscular Hemoglobin Concent 33.8 g/dl Platelet Count 209 K/uL Mean Platelet Volume 10.2 fL Neutrophils (%) (Auto) 88.1 % Lymphocytes (%) (Auto) 7.7 % Monocytes (%) (Auto) 3.7 % Eosinophils (%) (Auto) 0.0 % Basophils (%) (Auto) 0.0 % Neutrophils # (Auto) 13.29 K/uL Lymphocytes # (Auto) 1.16 K/uL Monocytes # (Auto) 0.56 K/uL Eosinophils # (Auto) 0.00 K/uL Basophils # (Auto) 0.00 K/uL RDW Standard Deviation 47.0 fL RDW Coefficient of Variation 14.9 % Immature Granulocyte % (Auto) 0.5 % Immature Granulocyte # (Auto) 0.07 K/uL Sodium Level 140 mmol/L Potassium Level 4.4 mmol/L Chloride Level 105 mmol/L Carbon Dioxide Level 26 mmol/L Anion Gap 9.0 mmol/L Blood Urea Nitrogen 20 mg/dl Creatinine 0.94 mg/dl Est Creatinine Clear Calc Drug Dose 66.3 ml/min Estimated GFR () 72.2 Estimated GFR (Non- 62.3 BUN/Creatinine Ratio 21.1 Random Glucose 191 mg/dl Calcium Level 8.5 mg/dl Hepatitis C Antibody Screen NEG Assessment & Plan SPINAL STENOSIS S/P LUMBAR DECOMPRESSION -POD 1 - Hg 9, repeat CBC in AM BP on the lower side, hold Lisinopril and HCTZ, decrease Verapamil and Metoprolol IV fluids ATRIAL FIBRILLATION - decrease Verapamil and Metoprolol tonight as BP marginal - resume Coumadin when hemostasis stable as deemed by Ortho SVC GERD -cont ranitidine HTN BP on the lower side, hold Lisinopril and HCTZ, decrease Verapamil and Metoprolol IV fluids DYSLIPIDEMIA -cont statin DVT PROPHYLAXIS -per ortho protocol CODE STATUS -FULL CODE status Thank you for this consultation. We will follow the patient with you during their hospital stay. You can reach a member of the [facility] Hospitalist Team 18/02 via pager @ . Current Inpatient Medications: Current Inpatient Medications Medications (Trade) Dose Ordered Sig/Francois Route Start Time Stop Time Status Last Admin Dose Admin Promethazine HCl/ Sodium Chloride (Phenergan Inj/ Nss 50ml) 50.5 ml @ 202 mls/hr Q6H PRN IV 08/13/16 15:30 09/12/16 15:29 Ondansetron HCl (Zofran Inj) 4 mg Q6H PRN IV 08/13/16 15:30 09/12/16 15:29 08/13/16 23:52 4 MG Metoclopramide HCl (Reglan Inj) 10 mg Q6H PRN IV 08/13/16 15:30 09/12/16 15:29 Lorazepam 0.5 mg 0.5 mg Q8H PRN PO 08/13/16 15:30 09/12/16 15:29 Lorazepam/Syringe (Ativan Inj/ Syringe) 0.25 ml @ 1 mls/min Q8H PRN IV 08/13/16 15:30 09/12/16 15:29 Pneumococcal Polysaccharide Vaccine 1 ea PRN PRN N/A 08/13/16 15:30 09/12/16 15:29 Influenza Virus Vacc Triv Types A&B 1 ea PRN PRN N/A 08/13/16 15:30 09/12/16 15:29 Polyethylene (Miralax Powder Packet) 17 gm Q6 PO 08/15/16 06:00 09/14/16 05:59 Bisacodyl (Dulcolax Supp) 10 mg DAILY PRN SC 08/13/16 15:30 09/12/16 15:29 Magnesium Hydroxide (Milk Of Magnesia Susp) 30 ml DAILY PRN PO 08/13/16 15:30 09/12/16 15:29 Hydromorphone HCl (Dilaudid Inj) 0.5 mg Q3H PRN IV 08/14/16 06:00 08/28/16 05:59 Acetaminophen/ Hydrocodone Bitart ([place] 5/325 Tab) 1-2 tabs prn moder... Q4H PRN PO 08/14/16 06:00 08/28/16 05:59 Acetaminophen 1000 mg 1,000 mg Q8H PRN PO 08/13/16 15:30 09/12/16 15:29 Acetaminophen (Ofirmev Iv) 100 ml @ 400 mls/hr Q8H PRN IV 08/13/16 15:30 09/12/16 15:29 Naloxone HCl (Narcan Inj) 0.1 mg Q5M PRN IV 08/13/16 15:30 09/12/16 15:29 Senna/Docusate Sodium (Senokot S Tab) 2 tab HS PO 08/13/16 21:00 09/12/16 20:59 08/13/16 21:24 2 TAB Sodium Biphosphate/ Sodium Phosphate (Fleet Enema) 132 ml ONE PRN SC 08/13/16 15:30 09/12/16 15:29 Hydroxyzine HCl (Vistaril Tab) 25 mg Q8H PRN PO 08/13/16 15:30 09/12/16 15:29 08/14/16 08:54 25 MG Al Hydroxide/Mg Hydroxide (Maalox Susp) 30 ml Q6H PRN PO 08/13/16 15:30 09/12/16 15:29 Famotidine (Pepcid Tab) 20 mg Q12H PRN PO 08/13/16 15:30 09/12/16 15:29 08/14/16 08:53 20 MG Diphenhydramine HCl (Benadryl Cap) 25 mg Q6H PRN PO 08/13/16 15:30 09/12/16 15:29 Gabapentin (Neurontin Cap) 300 mg BID PO 08/13/16 21:00 09/12/16 20:59 08/14/16 08:53 300 MG Metoprolol Succinate (Toprol Xl Tab) 50 mg BID PO 08/13/16 21:00 09/12/16 20:59 08/14/16 08:53 50 MG Pravastatin Sodium (Pravachol Tab) 40 mg QPM PO 08/13/16 21:00 09/12/16 20:59 08/13/16 21:24 40 MG Ranitidine HCl (zANTac TAB) 150 mg BID PO 08/13/16 21:00 09/12/16 20:59 08/14/16 08:53 150 MG Verapamil HCl (Calan-Sr Tab) 240 mg HS PO 08/13/16 21:00 09/12/16 20:59 08/13/16 21:24 240 MG Hydromorphone HCl (Dilaudid Inj) 1 mg Q3H PRN IV 08/14/16 06:00 08/28/16 05:59 08/14/16 11:50 1 MG
[2016-08-14] MEDS: SODIUM CHLORIDE 0.9% 1000ML 1,000 ML IV SCH (18:59)
[2016-08-14] MEDS: DOCUSATE SODIUM/SENNA 50/8.6MG TAB PO SCH (20:45)
[2016-08-14] MEDS: METOPROLOL SUCC 25MG EXT REL TAB PO SCH (20:45)
[2016-08-14] MEDS: PRAVASTATIN SOD 20 MG TAB PO SCH (20:45)
[2016-08-14] MEDS: VERAPAMIL HCL 120 MG TABCR PO SCH (20:46)
[2016-08-14] MEDS: HYDROCODONE/ACETAMOPHEN 5/325MG TAB PO PRN (23:30)
[2016-08-15] VITALS (14 sets, daily range): BP systolic 113–149; BP diastolic 63–80; PULSE 59–64; TEMP 36.3–36.7; O2SAT 91–99
[2016-08-15] MEDS: SODIUM CHLORIDE 0.9% 1000ML 1,000 ML IV SCH (04:12)
[2016-08-15] MEDS: POLYETHYLENE (MIRALAX) 17 GM PACK PO SCH ×4 (05:31→23:19)
[2016-08-15 05:57] LABS: HEMATOCRIT 23.3 % (37-47); IG% 0.4 %; LYMPH % 8.3 %; LYMPH ABS # 1.15 K/uL (1.2-3.4); MEAN CELL VOLUME 87.9 fL (80-100); MEAN CORPUSCULAR HEMOGLOBIN 28.7 pg (25-34); MEAN CORPUSCULAR HGB CONC 32.6 g/dl (32-36); MEAN PLATELET VOLUME 10.5 fL (7.4-10.4); MONO % 6.6 %; NEUT % 84.7 %; PLATELET COUNT 172 K/uL (130-400); RED BLOOD COUNT 2.65 M/uL (4.2-5.4); WHITE BLOOD COUNT 13.78 K/uL (4.8-10.8)
[2016-08-15 06:24] LABS: BUN/CREATININE RATIO 33.2 (10-20); CALCIUM 8.1 mg/dl (8.5-10.1); CREATININE 0.86 mg/dl (0.60-1.20); POTASSIUM 4.4 mmol/L (3.5-5.1)
[2016-08-15 06:35] LABS: COMPLETE YES
[2016-08-15] MEDS ORDERED: HYDR-5688 PO (07:42)
--- NOTE | 2016-08-15 07:43 | Discharge Instructions ---
Discharge Instructions Admission Reason for Admission: Lumbar Spinal Stenosis Discharge Discharge Diagnosis / Problem: stenosis Discharge Goals Goal(s): Improve function Activity Recommendations Activity Limitations: per Instructions/Follow-up section . Instructions / Follow-Up Instructions / Follow-Up ACTIVITY RECOMMENDATIONS: SELF CARE INSTRUCTIONS AFTER THORACIC/LUMBAR FUSIONS 1. You may walk to your tolerance. It is good exercise for your legs and back. Expect some back and intermittent leg aches and pains. 2. You may perform "counter-top" level activities (make a sandwich, calvin with a project, etc.). 3. No bending or lifting of more than 10 pounds or back twisting of any nature (roll like a log when turning in bed). 4. You may ride in a car for 20-30 minutes at a time. No driving until after your first visit with your doctor. 5. Frequent changes of position and restricting sitting to 30 minutes at a time will help limit the amount of back spasms and stiffness you may experience. 6. You may discontinue the use of ambulatory aids (cane, crutches, etc.) once your strength and confidence allow. 7. You may screen printing inspector the shower and let water strike your incision when you arrive home at least once daily. Do not take a tub bath, sit in a hot tub or go into a swimming pool until after your first recheck in the office. SPECIAL CARE INSTRUCTIONS: VERY IMPORTANT TO READ AND REVIEW A. Your surgical incision has been closed with a cosmetic suture under the skin that will dissolve in about 6 weeks. In 14 days, you can use a pair of clean scissors and cut the suture that is left outside of the skin at the ends of your incision. 1. The small skin tapes can be removed 7 days after surgery if they have not fallen off by that point. 2. You may keep the wound open to air as much as possible to promote healing after post-op day number 5 unless told otherwise by your doctor. 3. If you think the wound looks like it is becoming infected (redness or worsening drainage) and/or you are experiencing fever, chill or worsening back pain and muscle spasms, contact the office so that we may evaluate you as soon as possible. B. Complications are uncommon, but please contact us if you have any signs or symptoms of: 1. wound infection (fever higher than 102.5 degrees F, redness, separation of wound, drainage, or increasing pain from the incision) 2. blood clots in legs (pain, swelling, redness and warmth in legs) 3. urinary tract infection (fever higher than 102.5 degrees F, burning upon urination or increased frequency of urination) 4. nerve problems (inability to walk on your toes or heels, numbness, loss of bowel or bladder control) 5. any other symptoms that concern you C. Please call the office at if you have any concerns or questions about your operation or recovery. D. No smoking! Smoking drastically decreases the chance of a solid fusion. E. Do not take any anti-inflammatory medications (Indocin, Advil, Motrin, Aspirin, Naprosyn, etc.) as these may inhibit the chance of a solid fusion. Tylenol is okay to take for pain. MANAGING PAIN AFTER SPINAL SURGERY 1. Narcotic medication is intended for short-term use and will be provided for surgical pain. Surgical pain usually lasts for a period of 4-6 weeks. Narcotic medication includes Percocet, Vicodin, Darvocet, Tylenol #3 or Lortab. 2. Longer-term pain is more appropriately treated with non-narcotic medication such as Tylenol ES. 3. Muscle spasm is not appropriately treated with narcotics. Muscle relaxers such as Soma, Flexeril or Skelaxin can be used along with Tylenol ES. 4. Remember that we all live with some "aches and pains". This is not unusual or uncommon after an injury or as we get older. a. Back pain is expected and may include muscle spasms for 4 to 6 weeks after surgery. The pain should gradually improve. If the pain worsens for no apparent reason, please contact the office. b. Intermittent leg pain may also be experienced and should not be concerned about unless it worsens for no apparent reason. If so, please contact the office. 5. We will provide appropriate medication within the normal guidelines of their prescribed use. We will also be very cautious and aware of potential abuse and extended duration of patients' medication needs. a. Pain medications are for your comfort and to assist with sleep and rest so that the tissue can heal. They are not provided in order to return to normal activity and should not be used through the day. To do so or worsening pain at night can result from ongoing tissue damage and development of tolerance to the prescribed medicine. 6. Please allow 2-3 days to process refills. Prescriptions will not be mailed but must be picked up at the office. FOLLOW UP VISIT: Keep your scheduled follow-up appointment. Any questions, please call the office at . Current Hospital Diet Patient's current hospital diet: Regular Diet Discharge Diet Recommended Diet: Regular Diet Procedures Procedures Performed: L2-S1 Lumbar Laminectomy; Decompression; Pedicle Screw Fixation; Placement of Interbody Device; Posterolateral Fusion;Bone Morphogenetic Protein; Iliac Cable Fixation; Yu, allograft and autograft Pending Studies Studies pending at discharge: no Medical Emergencies . Who to Call and When: Medical Emergencies: If at any time you feel your situation is an emergency, please call 911 immediately. . Non-Emergent Contact Non-Emergency issues call your: Primary Care Provider . "Provider Documentation" section prepared by Karthikeyan Strauss. VTE Core Measure Inpt VTE Proph given/why not?: Romain Blair, VEE's
[2016-08-15] MEDS: GABAPENTIN 300 MG CAP PO SCH ×2 (08:20→21:59)
[2016-08-15] MEDS: HYDROCODONE/ACETAMOPHEN 5/325MG TAB PO PRN ×3 (08:20→22:02)
[2016-08-15] MEDS: RANITIDINE HCL 150 MG TAB PO SCH ×2 (08:21→21:58)
[2016-08-15] MEDS: METOPROLOL SUCC 25MG EXT REL TAB PO SCH ×2 (09:00→21:58)
[2016-08-15 12:34] LABS: ESTIMATED AVERAGE GLUCOSE 140 mg/dl; HA1C FLAG Normal (Normal)
--- NOTE | 2016-08-15 14:19 | PROGRESS NOTE ---
DATE: 08/15/2016 HISTORY OF PRESENT ILLNESS: Postop day #2. Back pain controlled. Leg pain improved. Vital signs stable. T-max 36.7. ZACH drained 50 mL. Hematocrit this a.m. is 23.3. On exam, the patient is in chair at bedside and has good strength to testing, appears comfortable. ASSESSMENT: Status post lumbar decompression and fusion. PLAN: At this time, while she denies being shortness of breath, she does note significant weakness with standing and ambulation. We will transfuse 1 unit, reassess her hematocrit in the morning, anticipate possible home tomorrow with home health.
[2016-08-15] MEDS ORDERED: LISINOPRIL 40 MG TAB PO ONE (15:00)
[2016-08-15 16:26] LABS: HEMATOCRIT 27.1 % (37-47)
--- NOTE | 2016-08-15 20:41 | Progress Note ---
Medicine Progress Note Date & Time of Visit: Aug 15, 2016 at 20:36. Subjective seen with at bedside comfortable no dyspnea, chest pain, dizziness, nausea no other symptoms Objective Last 8 Hrs Date Time Temp Pulse Resp B/P Pulse Ox O2 Delivery O2 Flow Rate FiO2 08/15/16 15:45 99 Room Air 08/15/16 15:36 62 08/15/16 14:54 36.7 61 17 143/73 99 Room Air 08/15/16 14:43 36.4 61 17 127/74 94 08/15/16 14:05 36.6 59 16 132/69 94 08/15/16 13:05 36.5 60 16 116/72 97 Physical Exam: General-oriented x3 , not in distress Eyes-anicteric Neck- no JVD Lungs- clear to auscultation b/l, no rales/wheeze Heart-normal rate, regular rhythm; no murmurs Abdomen- normal bowel sounds, soft, nontender Extremities-mild left lower leg edema, no warmth/tenderness right leg essentially normal Neuro- alert, oriented x 3;no gross deficits Skin- warm & dry Laboratory Results: Last 24 Hours Test 08/15/16 05:25 08/15/16 16:19 White Blood Count 13.78 K/uL Red Blood Count 2.65 M/uL Hemoglobin 7.6 g/dL 9.0 g/dL Hematocrit 23.3 % 27.1 % Mean Corpuscular Volume 87.9 fL Mean Corpuscular Hemoglobin 28.7 pg Mean Corpuscular Hemoglobin Concent 32.6 g/dl Platelet Count 172 K/uL Mean Platelet Volume 10.5 fL Neutrophils (%) (Auto) 84.7 % Lymphocytes (%) (Auto) 8.3 % Monocytes (%) (Auto) 6.6 % Eosinophils (%) (Auto) 0.0 % Basophils (%) (Auto) 0.0 % Neutrophils # (Auto) 11.67 K/uL Lymphocytes # (Auto) 1.15 K/uL Monocytes # (Auto) 0.91 K/uL Eosinophils # (Auto) 0.00 K/uL Basophils # (Auto) 0.00 K/uL RDW Standard Deviation 48.9 fL RDW Coefficient of Variation 15.3 % Immature Granulocyte % (Auto) 0.4 % Immature Granulocyte # (Auto) 0.05 K/uL Sodium Level 142 mmol/L Potassium Level 4.4 mmol/L Chloride Level 105 mmol/L Carbon Dioxide Level 29 mmol/L Anion Gap 8.0 mmol/L Blood Urea Nitrogen 29 mg/dl Creatinine 0.86 mg/dl Est Creatinine Clear Calc Drug Dose 72.4 ml/min Estimated GFR () 80.5 Estimated GFR (Non- 69.4 BUN/Creatinine Ratio 33.2 Random Glucose 161 mg/dl Estimated Average Glucose 140 mg/dl Hemoglobin A1c 6.5 % Calcium Level 8.1 mg/dl Assessment & Plan SPINAL STENOSIS S/P LUMBAR DECOMPRESSION -POD 2 ANEMIA - agree with 1 unit PRBC - maintain Hg >8 HTN low BP improving resume Lisinopril, hold HCTZ ATRIAL FIBRILLATION - continue decreased dose of Verapamil and Metoprolol as BP and HR marginal - resume Coumadin when hemostasis stable as deemed by Ortho SVC DM TYPE 2 new diagnosis DM educator consulted will recommend Metformin 500mg BID DM diet ISS GERD -cont ranitidine DYSLIPIDEMIA -cont statin DVT PROPHYLAXIS -per ortho protocol CODE STATUS -FULL CODE status Thank you for this consultation. We will follow the patient with you during their hospital stay. You can reach a member of the [facility] Hospitalist Team 18/02 via pager @ [phone]. Current Inpatient Medications: Current Inpatient Medications Medications (Trade) Dose Ordered Sig/Francois Route Start Time Stop Time Status Last Admin Dose Admin Promethazine HCl/ Sodium Chloride (Phenergan Inj/ Nss 50ml) 50.5 ml @ 202 mls/hr Q6H PRN IV 08/13/16 15:30 09/12/16 15:29 Ondansetron HCl (Zofran Inj) 4 mg Q6H PRN IV 08/13/16 15:30 09/12/16 15:29 08/13/16 23:52 4 MG Metoclopramide HCl (Reglan Inj) 10 mg Q6H PRN IV 08/13/16 15:30 09/12/16 15:29 Lorazepam 0.5 mg 0.5 mg Q8H PRN PO 08/13/16 15:30 09/12/16 15:29 Lorazepam/Syringe (Ativan Inj/ Syringe) 0.25 ml @ 1 mls/min Q8H PRN IV 08/13/16 15:30 09/12/16 15:29 Pneumococcal Polysaccharide Vaccine 1 ea PRN PRN N/A 08/13/16 15:30 09/12/16 15:29 Influenza Virus Vacc Triv Types A&B 1 ea PRN PRN N/A 08/13/16 15:30 09/12/16 15:29 Polyethylene (Miralax Powder Packet) 17 gm Q6 PO 08/15/16 06:00 09/14/16 05:59 08/15/16 18:11 17 GM Bisacodyl (Dulcolax Supp) 10 mg DAILY PRN IN 08/13/16 15:30 09/12/16 15:29 Magnesium Hydroxide (Milk Of Magnesia Susp) 30 ml DAILY PRN PO 08/13/16 15:30 09/12/16 15:29 Hydromorphone HCl (Dilaudid Inj) 0.5 mg Q3H PRN IV 08/14/16 06:00 08/28/16 05:59 Acetaminophen/ Hydrocodone Bitart ([place]ita 5/325 Tab) 1-2 tabs prn moder... Q4H PRN PO 08/14/16 06:00 08/28/16 05:59 08/15/16 14:04 2 TAB Acetaminophen 1000 mg 1,000 mg Q8H PRN PO 08/13/16 15:30 09/12/16 15:29 Acetaminophen (Ofirmev Iv) 100 ml @ 400 mls/hr Q8H PRN IV 08/13/16 15:30 09/12/16 15:29 Naloxone HCl (Narcan Inj) 0.1 mg Q5M PRN IV 08/13/16 15:30 09/12/16 15:29 Senna/Docusate Sodium (Senokot S Tab) 2 tab HS PO 08/13/16 21:00 09/12/16 20:59 08/14/16 20:45 2 TAB Sodium Biphosphate/ Sodium Phosphate (Fleet Enema) 132 ml ONE PRN IN 08/13/16 15:30 09/12/16 15:29 Hydroxyzine HCl (Vistaril Tab) 25 mg Q8H PRN PO 08/13/16 15:30 09/12/16 15:29 08/14/16 08:54 25 MG Al Hydroxide/Mg Hydroxide (Maalox Susp) 30 ml Q6H PRN PO 08/13/16 15:30 09/12/16 15:29 Famotidine (Pepcid Tab) 20 mg Q12H PRN PO 08/13/16 15:30 09/12/16 15:29 08/14/16 08:53 20 MG Diphenhydramine HCl (Benadryl Cap) 25 mg Q6H PRN PO 08/13/16 15:30 09/12/16 15:29 Gabapentin (Neurontin Cap) 300 mg BID PO 08/13/16 21:00 09/12/16 20:59 08/15/16 08:20 300 MG Pravastatin Sodium (Pravachol Tab) 40 mg QPM PO 08/13/16 21:00 09/12/16 20:59 08/14/16 20:45 40 MG Ranitidine HCl (zANTac TAB) 150 mg BID PO 08/13/16 21:00 09/12/16 20:59 08/15/16 08:21 150 MG Hydromorphone HCl (Dilaudid Inj) 1 mg Q3H PRN IV 08/14/16 06:00 08/28/16 05:59 08/14/16 11:50 1 MG Metoprolol Succinate (Toprol Xl Tab) 25 mg BID PO 08/14/16 21:00 09/13/16 20:59 Verapamil HCl (Calan-Sr Tab) 120 mg HS PO 08/14/16 21:00 09/13/16 20:59 Lisinopril (Zestril Tab) 40 mg QAM PO 08/16/16 09:00 09/15/16 08:59
[2016-08-15] MEDS ORDERED: DEXTROSE 50% 50 ML SYR IV PRN (20:45)
[2016-08-15] MEDS ORDERED: GLUCOSE 40% GEL 15 GM TUBE PO PRN (20:45)
[2016-08-15] MEDS ORDERED: GLUCOSE 10 TABS/TUBE PO PRN (20:45)
[2016-08-15] MEDS ORDERED: GLUCAGON FOR INJ 1 MG VIAL SQ PRN (20:45)
[2016-08-15] MEDS: INSULIN ASPART 100 UNITS/ML 3 ML PEN SC SCH (21:54)
[2016-08-15] MEDS: DOCUSATE SODIUM/SENNA 50/8.6MG TAB PO SCH (21:58)
[2016-08-15] MEDS: VERAPAMIL HCL 120 MG TABCR PO SCH (21:58)
[2016-08-15] MEDS: PRAVASTATIN SOD 20 MG TAB PO SCH (21:58)
[2016-08-16] MEDS: HYDROCODONE/ACETAMOPHEN 5/325MG TAB PO PRN ×2 (03:32→09:22)
[2016-08-16] MEDS: POLYETHYLENE (MIRALAX) 17 GM PACK PO SCH (05:35)
[2016-08-16 06:19] LABS: HEMATOCRIT 25.9 % (37-47); IG% 0.7 %; LYMPH % 26.8 %; LYMPH ABS # 2.92 K/uL (1.2-3.4); MEAN CELL VOLUME 85.8 fL (80-100); MEAN CORPUSCULAR HEMOGLOBIN 28.1 pg (25-34); MEAN CORPUSCULAR HGB CONC 32.8 g/dl (32-36); MONO % 8.4 %; NEUT % 64.1 %; PLATELET COUNT 151 K/uL (130-400); RED BLOOD COUNT 3.02 M/uL (4.2-5.4)
[2016-08-16 06:46] LABS: COMPLETE YES
[2016-08-16 06:51] LABS: BUN/CREATININE RATIO 30.1 (10-20); CALCIUM 8.4 mg/dl (8.5-10.1); CREATININE 0.74 mg/dl (0.60-1.20)
[2016-08-16 07:06] VITALS: BP 110/70; PULSE 61; TEMP 36.5; O2SAT 94
[2016-08-16] MEDS: INSULIN ASPART 100 UNITS/ML 3 ML PEN SC SCH (08:00)
--- NOTE | 2016-08-16 08:25 | DISCHARGE SUMMARY ---
PRINCIPAL DIAGNOSIS: Spinal stenosis. HOSPITAL COURSE FOLLOWS: On 08/13/2016 the patient underwent multilevel lumbar decompression and fusion, tolerated this well and taken to the orthopedic floor postoperatively. Postop day #1 she was up and ambulatory, progressed to postop day #2. Subsequently on postop day #3, ZACH drain decreased appropriately and she was discharged home. Discharge orders and instructions found on the chart for further review.
[2016-08-16] MEDS ORDERED: LISINOPRIL 40 MG TAB PO SCH (09:00)
[2016-08-16] MEDS: GABAPENTIN 300 MG CAP PO SCH (09:17)
[2016-08-16] MEDS: METOPROLOL SUCC 25MG EXT REL TAB PO SCH (09:17)
[2016-08-16] MEDS: RANITIDINE HCL 150 MG TAB PO SCH (09:17)
[2016-08-16 10:00] VITALS: Ht 160 cm; Wt 104.6 kg
[2016-08-16 10:49] VITALS: BP 110/70; PULSE 61; TEMP 36.5; O2SAT 94
--- NOTE | 2016-08-16 12:40 | Progress Note ---
Medicine Progress Note Date & Time of Visit: Aug 16, 2016 at 12:32. Subjective patient seen sitting up in bed in good spirits states she feels well overall denies dizziness, chest pain, dyspnea, bleeding Objective Last 8 Hrs Date Time Temp Pulse Resp B/P Pulse Ox O2 Delivery O2 Flow Rate FiO2 08/16/16 10:49 36.5 61 17 94 Room Air 08/16/16 08:00 Room Air 08/16/16 07:06 36.5 61 17 110/70 94 Room Air Physical Exam: General-oriented x3 , not in distress Lungs- clear to auscultation, no rales/wheeze bilaterally Heart-normal rate, regular rhythm; no murmurs Abdomen- normal bowel sounds, soft, nontender Extremities-mild left lower leg edema, no warmth/tenderness right leg essentially normal Neuro- alert, oriented x 3;no gross deficits Skin- warm & dry Laboratory Results: Last 24 Hours Test 08/15/16 16:19 08/15/16 16:45 08/15/16 21:03 08/16/16 05:52 Hemoglobin 9.0 g/dL 8.5 g/dL Hematocrit 27.1 % 25.9 % Bedside Glucose 139 mg/dl 113 mg/dl White Blood Count 10.90 K/uL Red Blood Count 3.02 M/uL Mean Corpuscular Volume 85.8 fL Mean Corpuscular Hemoglobin 28.1 pg Mean Corpuscular Hemoglobin Concent 32.8 g/dl Platelet Count 151 K/uL Mean Platelet Volume 10.0 fL Neutrophils (%) (Auto) 64.1 % Lymphocytes (%) (Auto) 26.8 % Monocytes (%) (Auto) 8.4 % Eosinophils (%) (Auto) 0.0 % Basophils (%) (Auto) 0.0 % Neutrophils # (Auto) 6.98 K/uL Lymphocytes # (Auto) 2.92 K/uL Monocytes # (Auto) 0.92 K/uL Eosinophils # (Auto) 0.00 K/uL Basophils # (Auto) 0.00 K/uL RDW Standard Deviation 49.9 fL RDW Coefficient of Variation 15.9 % Immature Granulocyte % (Auto) 0.7 % Immature Granulocyte # (Auto) 0.08 K/uL Red Blood Cell Morphology Unremarkable Sodium Level 143 mmol/L Potassium Level 4.0 mmol/L Chloride Level 106 mmol/L Carbon Dioxide Level 29 mmol/L Anion Gap 8.0 mmol/L Blood Urea Nitrogen 22 mg/dl Creatinine 0.74 mg/dl Est Creatinine Clear Calc Drug Dose 84.2 ml/min Estimated GFR () 96.5 Estimated GFR (Non- 83.2 BUN/Creatinine Ratio 30.1 Random Glucose 113 mg/dl Calcium Level 8.4 mg/dl Test 08/16/16 07:54 Bedside Glucose 107 mg/dl Assessment & Plan SPINAL STENOSIS S/P LUMBAR DECOMPRESSION -POD 3 - stable overall ANEMIA - agree with 1 unit PRBC - Hg 8.5 - monitor as outpatient HTN low BP improved resume Lisinopril advised to hold HCTZ until seen by PCP next week ATRIAL FIBRILLATION - continue Verapamil and Metoprolol Coumadin reordered by Surgery Possible DM TYPE 2 vs Pre DM A1c 6.5 fasting blood glucose today 113 DM educator consulted - advised to ff up with PCP next week for further management diet, exercise advised GERD -cont ranitidine DYSLIPIDEMIA -cont statin patient advised to ff up with coumadin clinic as advised for INR check, PCP next week she verbalized understanding and agreement Thank you for this consultation. We will follow the patient with you during their hospital stay. You can reach a member of the [facility] Hospitalist Team 18/02 via pager @ . Current Inpatient Medications: Current Inpatient Medications Medications (Trade) Dose Ordered Sig/Francois Route Start Time Stop Time Status Last Admin Dose Admin Promethazine HCl/ Sodium Chloride (Phenergan Inj/ Nss 50ml) 50.5 ml @ 202 mls/hr Q6H PRN IV 08/13/16 15:30 09/12/16 15:29 Ondansetron HCl (Zofran Inj) 4 mg Q6H PRN IV 08/13/16 15:30 09/12/16 15:29 08/13/16 23:52 4 MG Metoclopramide HCl (Reglan Inj) 10 mg Q6H PRN IV 08/13/16 15:30 09/12/16 15:29 Lorazepam 0.5 mg 0.5 mg Q8H PRN PO 08/13/16 15:30 09/12/16 15:29 Lorazepam/Syringe (Ativan Inj/ Syringe) 0.25 ml @ 1 mls/min Q8H PRN IV 08/13/16 15:30 09/12/16 15:29 Pneumococcal Polysaccharide Vaccine 1 ea PRN PRN N/A 08/13/16 15:30 09/12/16 15:29 Influenza Virus Vacc Triv Types A&B 1 ea PRN PRN N/A 08/13/16 15:30 09/12/16 15:29 Polyethylene (Miralax Powder Packet) 17 gm Q6 PO 08/15/16 06:00 09/14/16 05:59 08/16/16 05:35 17 GM Bisacodyl (Dulcolax Supp) [address] 08/13/16 15:30 09/12/16 15:29 Magnesium Hydroxide (Milk Of Magnesia Susp) 30 ml DAILY PRN PO 08/13/16 15:30 09/12/16 15:29 Hydromorphone HCl (Dilaudid Inj) 0.5 mg Q3H PRN IV 08/14/16 06:00 08/28/16 05:59 Acetaminophen/ Hydrocodone Bitart ([place] 5/325 Tab) 1-2 tabs prn moder... Q4H PRN PO 08/14/16 06:00 08/28/16 05:59 08/16/16 09:22 2 TAB Acetaminophen 1000 mg 1,000 mg Q8H PRN PO 08/13/16 15:30 09/12/16 15:29 Acetaminophen (Ofirmev Iv) 100 ml @ 400 mls/hr Q8H PRN IV 08/13/16 15:30 09/12/16 15:29 Naloxone HCl (Narcan Inj) 0.1 mg Q5M PRN IV 08/13/16 15:30 09/12/16 15:29 Senna/Docusate Sodium (Senokot S Tab) 2 tab HS PO 08/13/16 21:00 09/12/16 20:59 08/15/16 21:58 2 TAB Sodium Biphosphate/ Sodium Phosphate (Fleet Enema) [address] 08/13/16 15:30 09/12/16 15:29 Hydroxyzine HCl (Vistaril Tab) 25 mg Q8H PRN PO 08/13/16 15:30 09/12/16 15:29 08/14/16 08:54 25 MG Al Hydroxide/Mg Hydroxide (Maalox Susp) 30 ml Q6H PRN PO 08/13/16 15:30 09/12/16 15:29 Famotidine (Pepcid Tab) 20 mg Q12H PRN PO 08/13/16 15:30 09/12/16 15:29 08/14/16 08:53 20 MG Diphenhydramine HCl (Benadryl Cap) 25 mg Q6H PRN PO 08/13/16 15:30 09/12/16 15:29 Gabapentin (Neurontin Cap) 300 mg BID PO 08/13/16 21:00 09/12/16 20:59 08/16/16 09:17 300 MG Pravastatin Sodium (Pravachol Tab) 40 mg QPM PO 08/13/16 21:00 09/12/16 20:59 08/15/16 21:58 40 MG Ranitidine HCl (zANTac TAB) 150 mg BID PO 08/13/16 21:00 09/12/16 20:59 08/16/16 09:17 150 MG Hydromorphone HCl (Dilaudid Inj) 1 mg Q3H PRN IV 08/14/16 06:00 08/28/16 05:59 08/14/16 11:50 1 MG Metoprolol Succinate (Toprol Xl Tab) 25 mg BID PO 08/14/16 21:00 09/13/16 20:59 08/16/16 09:17 25 MG Verapamil HCl (Calan-Sr Tab) 120 mg HS PO 08/14/16 21:00 09/13/16 20:59 08/15/16 21:58 120 MG Lisinopril (Zestril Tab) 40 mg QAM PO 08/16/16 09:00 09/15/16 08:59 08/16/16 09:17 40 MG Insulin Aspart (novoLOG ASPART) SLIDING SCALE If C... ACHS SC 08/15/16 21:00 09/14/16 20:59 Glucose (Glucose 40% Gel) 15-30 GRAMS 15 GRAMS... UD PRN PO 08/15/16 20:45 09/14/16 20:44 Glucose (Glucose Chew Tab) 4-8 Tablets 4 Tabl... UD PRN PO 08/15/16 20:45 2/17/17 20:44 Dextrose (Dextrose 50% 50ML Syringe) 25-50ML OF 50% DW IV FOR... UD PRN IV 08/15/16 20:45 09/14/16 20:44 Glucagon (Glucagon Inj) 1 mg UD PRN SQ 08/15/16 20:45 09/14/16 20:44
== END 2016-08-16 12:50 | disposition home health service (06) | DRG 460 ==
LOC: ENRESERVDT → ENRESERVTM → C.ACU 10:29 → C.3E 15:24
PROVIDERS: ADMIT Orthopaedic Surgery Orthopaedic Surgery of the Spine; ATTEND Orthopaedic Surgery Orthopaedic Surgery of the Spine
PROC: 0SG80KZ Fusion of Left Sacroiliac Joint with Nonautologous Tissue Substitute, Open Approach (ICD-10-PCS; principal; 2016-08-13 12:30)
PROC: 0SG707Z Fusion of Right Sacroiliac Joint with Autologous Tissue Substitute, Open Approach (ICD-10-PCS; principal; 2016-08-13 12:30)
PROC: 0SG807Z Fusion of Left Sacroiliac Joint with Autologous Tissue Substitute, Open Approach (ICD-10-PCS; principal; 2016-08-13 12:30)
PROC: 0SG1071 Fusion of 2 or more Lumbar Vertebral Joints with Autologous Tissue Substitute, Posterior Approach, Posterior Column, Open Approach (ICD-10-PCS; principal; 2016-08-13 12:30)
PROC: 0SG70KZ Fusion of Right Sacroiliac Joint with Nonautologous Tissue Substitute, Open Approach (ICD-10-PCS; principal; 2016-08-13 12:30)
PROC: 3E0U0GB Introduction of Recombinant Bone Morphogenetic Protein into Joints, Open Approach (ICD-10-PCS; principal; 2016-08-13 12:30)
PROC: 0SG00AJ Fusion of Lumbar Vertebral Joint with Interbody Fusion Device, Posterior Approach, Anterior Column, Open Approach (ICD-10-PCS; principal; 2016-08-13 12:30)
PROC: 0SG3071 Fusion of Lumbosacral Joint with Autologous Tissue Substitute, Posterior Approach, Posterior Column, Open Approach (ICD-10-PCS; principal; 2016-08-13 12:30)
PROC: 0ST20ZZ Resection of Lumbar Vertebral Disc, Open Approach (ICD-10-PCS; principal; 2016-08-13 12:30)
DX: M48.06 Spinal stenosis, lumbar region (principal); Z68.41 Body mass index [BMI] 40.0-44.9, adult; M48.07 Spinal stenosis, lumbosacral region; R11.2 Nausea with vomiting, unspecified; E11.9 Type 2 diabetes mellitus without complications; I48.91 Unspecified atrial fibrillation; I10 Essential (primary) hypertension; E78.5 Hyperlipidemia, unspecified; Z79.899 Other long term (current) drug therapy; K21.9 Gastro-esophageal reflux disease without esophagitis; I25.10 Atherosclerotic heart disease of native coronary artery without angina pectoris; I73.9 Peripheral vascular disease, unspecified; D64.9 Anemia, unspecified; G47.33 Obstructive sleep apnea (adult) (pediatric); E66.01 Morbid (severe) obesity due to excess calories; Z99.89 Dependence on other enabling machines and devices; Z95.3 Presence of xenogenic heart valve; Z95.0 Presence of cardiac pacemaker; Z79.82 Long term (current) use of aspirin; Z79.01 Long term (current) use of anticoagulants

== ENCOUNTER → 2016-08-19 | Outpatient (CLI) | payer OTHER, MEDICARE ==
[~2016-08-19] MED LIST changes: -CEFAZOLIN 2000 MG/60 ML D5W IV SCH; +HYDR-5688 PO; -LACTATED RINGER'S 1000ML 1,000 ML IV SCH
[2016-08-19 11:59] LABS: PROTHROMBIN TIME (PATIENT) 11.2 SECONDS (9.0-12.0)
--- NOTE | 2016-08-22 11:59 | CODING QUERY NO DIAGNOSIS ---
Valid Physician Order Needed A valid physician order must be submitted in order to properly bill for the service(s) provided, including date of service(s), valid diagnosis, and physician signature. If these tests are done on a recurring basis the original physican order must be submitted in order to code and bill for the service(s) provided. Please fax us the original, signed physician order so that we may expedite billing to [phone] DOS 08/19/16 * PT/INR Thank you Lela [facility] Information Management
== END | disposition home or self-care (01) ==
LOC: C.LABSPEC 10:48
PROVIDERS: ATTEND Physician Assistant
DX: Z51.81 Encounter for therapeutic drug level monitoring (principal); Z79.01 Long term (current) use of anticoagulants

== ENCOUNTER → 2016-08-22 | Outpatient (CLI) | payer OTHER, MEDICARE ==
[2016-08-22 09:45] LABS: INR 1.8 (0.9-1.1); PROTHROMBIN TIME (PATIENT) 19.2 SECONDS (9.0-12.0)
--- NOTE | 2016-08-25 08:12 | CODING QUERY NO DIAGNOSIS ---
Valid Physician Order Needed A valid physician order must be submitted in order to properly bill for the service(s) provided, including date of service(s), valid diagnosis, and physician signature. If these tests are done on a recurring basis the original physican order must be submitted in order to code and bill for the service(s) provided. Please fax us the original, signed physician order so that we may expedite billing to [phone] DOS 08/22/16 * PT/INR ORDERED BY CYNTHIA COLLAZO PA-C Thank you Symone [facility] Information Management
== END | disposition home or self-care (01) ==
LOC: C.LABSPEC 09:21
PROVIDERS: ATTEND Internal Medicine
DX: Z51.81 Encounter for therapeutic drug level monitoring (principal); Z79.01 Long term (current) use of anticoagulants

== ENCOUNTER 2022-01-31 09:19 | Observation (INO) ==
--- NOTE | 2021-12-29 12:55 | PAT Medication Instructions ---
Medication Instructions Date of Service December 29, 2021 Home Medications Medication Instructions Recorded acetaminophen 500 mg tablet 1,000 mg PO Q8 PRN #90 tab 07/29/19 lisinopril 40 mg tablet (Zestril) 40 mg PO QAM metoprolol tartrate 50 mg tablet 50 mg PO BID pravastatin 40 mg tablet (Pravachol) 40 mg PO QPM verapamil 240 mg tablet,extended release (Calan SR) 240 mg PO QPM warfarin 1 mg tablet 1 mg PO QPM acetaminophen 500 mg tablet 1,000 mg PO Q8 PRN cholecalciferol (vitamin D3) 50 mcg (2,000 unit) tablet (Vitamin D3) 50 mcg PO QAM loratadine 10 mg tablet 10 mg PO QAM ASK your prescriber and surgeon warfarin 1 mg tablet 1 mg PO QPM DO NOT take the morning of surgery lisinopril 40 mg tablet (Zestril) 40 mg PO QAM cholecalciferol (vitamin D3) 50 mcg (2,000 unit) tablet (Vitamin D3) 50 mcg PO QAM loratadine 10 mg tablet 10 mg PO QAM Take morning of surgery With a small sip of water, OTHERWISE NOTHING TO EAT OR DRINK AFTER MIDNIGHT: metoprolol tartrate 50 mg tablet 50 mg PO BID acetaminophen 500 mg tablet 1,000 mg PO Q8 PRN (if needed) Take evening before surgery metoprolol tartrate 50 mg tablet 50 mg PO BID pravastatin 40 mg tablet (Pravachol) 40 mg PO QPM verapamil 240 mg tablet,extended release (Calan SR) 240 mg PO QPM acetaminophen 500 mg tablet 1,000 mg PO Q8 PRN (if needed) Other Notes If you have any questions please call us at [phone] or [phone] or [phone] or [phone]
--- NOTE | 2022-01-01 12:14 | Anesthesiology Consultation ---
Date of Service January 01, 2022 Assessment & Plan (1) Encounter for pre-operative examination: - check coags and BSG STAT am DOS. - tachycardia, abnormal EKG: Pt states has no new or changed symptoms. She related elevated HR to increased caffeine consumption within the past 12 hours noting this has occurred in the past and has been self-resolving. Case was discussed with Dr. Montero who also reviewed EKG and advised patient schedule an acute visit with her cardiology office this week and is to seek emergency care if any new or changed symptoms. The patient was advised to contact her cardiology office today regarding elevated heart rate (EKG will be faxed to their office), avoid caffeine and to call 911 if any new or changed symptoms. She verbalized full understanding and agreement, denied questions or concerns. Cardiology office was called by my colleague with above information and they advised it would be relayed to provider. Jenny with their office advised a physician reviewed this information as well as the EKG tracing and they have been in contact with patient. - pt reports upcoming cardiology clearance. - COVID screening: Per assessment on 01/01/2022: Travel screen negative, no known COVID-19 positive contacts or current COVID-19 related symptoms in past 2 weeks. Pt vaccinated. Surgeon arranging preop COVID testing, scheduled 01/26/2022. Awaiting results. Chart Review Chart Review: Pending: Refer to Additional Notes / Consult section and Patient seen in Pre Admission Testing Teaching & Discussion Pre-Anesthesia Teaching/Discussion Notes: Instructed NPO after midnight before surgery, except medications with 15 cc of water. Medication instructions provided according to the PAT guidelines. History Surgery Operation Date: 01/31/22 10:50 Proposed Procedures p Left Total Knee Arthroplasty - Carlos Riggs DO Height/Weight Height: 5 ft 2 in Weight: 104.2 kg Allergies Allergy/AdvReac Type Severity Reaction Status Date / Time oxycodone AdvReac Intermediate Nausea, Verified 12/29/21 16:05 hallucinations Medications Home Medications Medication Instructions Recorded Confirmed Last Taken lisinopril 40 mg tablet (Zestril) 40 mg PO QAM 06/23/19 12/29/21 02/08/20 09:00 metoprolol tartrate 50 mg tablet 50 mg PO BID 06/23/19 12/29/21 02/08/20 17:00 pravastatin 40 mg tablet 40 mg PO QPM 06/23/19 12/29/21 02/08/20 17:00 (Pravachol) verapamil 240 mg tablet,extended 240 mg PO QPM 06/23/19 12/29/21 02/08/20 17:00 release (Calan SR) warfarin 1 mg tablet 1 mg PO QPM 06/23/19 12/29/21 02/08/20 17:00 acetaminophen 500 mg tablet 1,000 mg PO Q8 PRN #90 tab 07/29/19 12/29/21 02/08/20 09:00 cholecalciferol (vitamin D3) 50 50 mcg PO QAM 12/29/21 12/29/21 Unknown mcg (2,000 unit) tablet (Vitamin D3) loratadine 10 mg tablet 10 mg PO QAM 12/29/21 12/29/21 Unknown Past Medical History Medical History (Updated 01/01/22 @ 12:44 by Lizet Lao PA-C) Anemia Atrial fibrillation follows with [facility], anticoagulated Carotid stenosis s/p left CEA (2008); at least 50-69% stenosis of R ICA on 2017 doppler CKD (chronic kidney disease) stage 3, GFR 30-59 ml/min Diverticular disease h/o diverticulitis last episode 11/2021 dietary induced per pt GERD (gastroesophageal reflux disease) controlled, stable per pt History of basal cell cancer nose s/p Mohs History of bicuspid aortic valve s/p AVR (2013) History of blood transfusion with back fusion History of uterine cancer SHENG-BSO Hyperlipidemia Hypertension controlled, stable per pt IBS (irritable bowel syndrome) Morbid obesity with BMI of 40.0-44.9, adult Osteoarthritis Presence of cardiac pacemaker Implanted 2009 (2/2 bradycardia/SN dysfunction). [employer]. Replaced 2018) Follows with Dr. Vasques, [facility] [place] Scoliosis Sleep apnea CPAP-compliant Patient denies h/o stroke, seizures, heart attack, heart failure, DM, or blood clots. Exercise / Class Metabolic Activity II 4-5 Yardwork/Stairs/Walk up hill (mild SOB at top of stairs onset 6 months ago without worsening, denies chest discomfort) Past Family History Family History Other Adopted Past Surgical History Surgical History History of aortic valve replacement 2013 History of appendectomy History of basal cell carcinoma (BCC) excision History of x2 History of cardiac cath 2014 (Jae) > no stents History of colonoscopy History of esophagogastroduodenoscopy (EGD) History of left-sided carotid endarterectomy 2008 History of lumbar laminectomy + fusion History of orthopedic surgery R thumb fusion (2003) History of procedure for peripheral vascular disease (~01/2020) Right Lower Extremity Angiogram with Intervention, EXPLORATION GEOLOGIST Left Popliteal Artery, Mechanical Closure Left Femoral Artery--Dr. Raymond @ [facility] History of procedure for peripheral vascular disease (~12/2019) Left Lower Extremity Angiogram, Percutaneous Transluminal Angioplasty and Stenting of Left Popliteal Artery, Mechanical Closure of Right Femoral Artery--Dr. Raymond @ [facility] History of removal of cyst (~02/2021) from back of neck---under local anesthesia History of right knee surgery (~10/26/19) right knee manipulation under anesthesia @ [facility] History of tooth extraction History of total abdominal hysterectomy and bilateral salpingo-oophorectomy History of total knee replacement Right TKA (07/28/19): SAB at L2/3 (x1 attempt) + PNB at [facility]. No issues per post-op anesthesia progress note. Nausea and vomiting after administration of anesthetic agent S/P thyroid biopsy THYROID NODULE Status post placement of cardiac pacemaker Past Anesthesia History No Hx of Anesthesia Complications and No Family Hx of Anesthesia Complications History of PONV History of PONV (denies needing scop patch) and Hx of Motion Sickness Social History Smoking Status: Never smoker Do You Dip or Chew Tobacco: No Hx Alcohol Use: No Hx Substance Use: No substance use type: does not use Review of Systems Patient denies chest discomfort, increased/changed/worsened chronic shortness of breath or dyspnea on exertion, palpitations, dizziness, lightheadedness, nausea, vomiting, visual change, headache, pleuritic chest discomfort, fever, chills, cough, wheezing, lethargy, fatigue, ill contacts or recent travel/immobilization. She notes has been tachycardic around 115 since waking this morning and feels it is due to having increased caffeine intake over the past 12 hours. She states this has occurred in the past as well and has been self-resolving. Physical Exam Vital Signs Vitals BP 131/74 P 106-115 TEMP 98.4 SP02 96% on RA RESP 17 Physical Full cervical extension range of motion without pain TMD 3.5 finger breaths Mallampati Score 3 Dentition: intact, removable partial upper front; denies chipped or loose teeth, caps/crowns, implants or bridges Lungs: normal respiratory effort. Clear throughout to auscultation, no adventitious breath sounds Cardiac: tachycardic rate, regular rhythm, no murmurs noted Carotid arteries: negative bruit bilat Lab Results Anesthesia Preop Results Results Anesthesia Widget: WBC 5.81 K/uL (4.8-10.8) 01/01/22 Hgb 13.2 g/dL (12.0-16.0) 01/01/22 Hct 39.5 % (37-47) 01/01/22 Plt 242 K/uL (130-400) 01/01/22 Na 140 mmol/L (136-145) 01/01/22 K 4.1 mmol/L (3.5-5.1) 01/01/22 Cl 104 mmol/L (98-107) 01/01/22 CO2 31 mmol/L (21-32) 01/01/22 BUN 17 mg/dl (6-23) 01/01/22 Creat 0.75 mg/dl (0.6-1.2) 01/01/22 Glucose Level 113 mg/dl (70-99(Fasting)) H 01/01/22 PT 19.3 Seconds (9.0-12.0) H 01/01/22 PTT 37.9 Seconds (21.0-31.0) H 01/01/22 INR 1.9 (0.9-1.1) H 01/01/22 HA1c 6.6 % (4.5-5.6) H 01/01/22 Urine Color Yellow 01/01/22 Urine Appearance Clear (Clear) 01/01/22 Urine pH 5.5 (4.5-7.5) 01/01/22 Urine Specific [place] >= 1.030 (1.000-1.030) 01/01/22 Urine Protein Negative (Negative) 01/01/22 Urine Glucose (UA) Negative (Negative) 01/01/22 Urine Ketones Negative (Negative) 01/01/22 Urine Blood Negative (Negative) 01/01/22 Urine Nitrite Negative (Negative) 01/01/22 Urine Bilirubin Negative (Negative) 01/01/22 Urine Urobilinogen Negative (Negative) 01/01/22 Urine Leukocyte Esterase Negative (Negative) 01/01/22 Blood Type O Positive 01/01/22 Antibody Screen NEGATIVE 01/01/22 Testing Electrocardiogram Date: 01/01/22 Possible atrial flutter, rate [address] and T wave abnormality, consider anterior ischemia Chest X-Ray Date: 01/01/22 Surgical clips are noted in the left neck. The patient is status post midline sternotomy and aortic valve surgery. A 2-lead cardiac pacemaker is unchanged in position and partially obscures left mid chest. The heart is enlarged noting atherosclerotic calcification of the thoracic aorta. The pulmonary vasculature is noncongested. The lungs and pleural spaces are clear. There is no pneumothorax. The skeletal structures are osteopenic. The bony thorax appears intact. Fusion hardware is partially visualized in the lumbar spine. IMPRESSION: 1. Cardiomegaly and cardiac pacemaker without radiographic evidence of congestive failure. 2. No airspace consolidation or pleural effusion is identified. Other Testing Carotid doppler 05/29/17 No findings for restenosis at the site of endarterectomy left ICA Significant atherosclerotic plaque limits sensitivity for luminal assessment on the R carotid bulb and bifurcation Likely increasing area of stenosis at the proximal internal carotid artery on the R side since 2014 and stability since 2016. at least 50-69% stenosis
--- NOTE | 2022-01-03 13:50 | History & Physical Report ---
Date of Service January 03, 2022 date of surgery: 01/31/22 Procedure: Left Total Knee Arthroplasty Surgeon: Carlos Riggs Assessment & Plan (1) Arthritis of knee, left: Plan: Patient presents for preop evaluation prior to her left total knee replacement scheduled at [facility] on 01/31/2022. She has a prior right total knee replacement by Dr. Chavez, she has failed conservative measures including left knee cortisone injection as well as gel injection without relief. She is on Coumadin and unable to take any anti-inflammatories. We discussed options and she would like to proceed with left total knee replacement. She will require cardiac clearance from [facility], she is currently on Coumadin and will need instructions regarding bridging versus when to stop her Coumadin. They recommend her INR between 2 and 3. She like to be discharged home with home health physical therapy to time of discharge. We will schedule for Iovera injection prior to her knee replacement patient otherwise has no other questions or concerns The risks and benefits have been discussed including, but not limited to, risk of infection, nerve injury, stiffness, loss of motion, failure to improve, etc. Reasonable outcomes and options of treatment were discussed. An explanation of appropriate alternatives to the procedure that may be advantageous were discussed and their risks and benefits, as well as the risks and benefits of not proceeding with treatment. I offered to answer any additional inquiries concerning the treatment involved. All the patient's questions were answered. The patient is agreeable, understanding of the treatment plan and alternatives, and wishes to proceed with the treatment plan. History of Present Illness Chief Complaint: left knee pain Primary Care Provider: Kaya Poole is a 76 year old female who complains of left knee pain, presents for pre-op evaluation prior to a left total knee replacement by Dr Riggs at [facility]. she complains of pain and stiffness in her left knee. Currently the patient states that the symptoms are moderate-severe and rated 7/10. The pain is described as aching, sharp and throbbing. her symptoms are aggravated by ascending stairs, daily activities, first steps while awake walking. she is unable to take NSAIDs due to Coumadin. she has been treated with previous visco and cortisone injections in the past without much relief. she has had a right TKA by Dr Chavez Allergies Allergy/AdvReac Type Severity Reaction Status Date / Time oxycodone AdvReac Intermediate Nausea, Verified 12/29/21 16:05 hallucinations Home Medications Medication Instructions Recorded Confirmed Type lisinopril 40 mg tablet (Zestril) 40 mg PO QAM 06/23/19 12/29/21 History metoprolol tartrate 50 mg tablet 50 mg PO BID 06/23/19 12/29/21 History pravastatin 40 mg tablet 40 mg PO QPM 06/23/19 12/29/21 History (Pravachol) verapamil 240 mg tablet,extended 240 mg PO QPM 06/23/19 12/29/21 History release (Calan SR) warfarin 1 mg tablet 1 mg PO QPM 06/23/19 12/29/21 History acetaminophen 500 mg tablet 1,000 mg PO Q8 PRN #90 tab 07/29/19 12/29/21 Rx cholecalciferol (vitamin D3) 50 50 mcg PO QAM 12/29/21 12/29/21 History mcg (2,000 unit) tablet (Vitamin D3) loratadine 10 mg tablet 10 mg PO QAM 12/29/21 12/29/21 History Past Med/Surg History Medical History Anemia Atrial fibrillation follows with [facility], anticoagulated Carotid stenosis s/p left CEA (2008); at least 50-69% stenosis of R ICA on 2017 doppler CKD (chronic kidney disease) stage 3, GFR 30-59 ml/min Diverticular disease h/o diverticulitis last episode 11/2021 dietary induced per pt GERD (gastroesophageal reflux disease) controlled, stable per pt History of basal cell cancer nose s/p Mohs History of bicuspid aortic valve s/p AVR (2013) History of blood transfusion with back fusion History of uterine cancer SHENG-BSO Hyperlipidemia Hypertension controlled, stable per pt IBS (irritable bowel syndrome) Morbid obesity with BMI of 40.0-44.9, adult Osteoarthritis Presence of cardiac pacemaker Implanted 2009 (2/2 bradycardia/SN dysfunction). [employer]. Replaced 2018) [place] Vasques[place] [facility] [place] [facility] [place]oliosis Sleep apnea CPAP-compliant Surgical History History of aortic valve replacement 2013 History of appendectomy History of basal cell carcinoma (BCC) excision History of x2 History of cardiac cath 2014 (Jae) > no stents History of colonoscopy History of esophagogastroduodenoscopy (EGD) History of left-sided carotid endarterectomy 2008 History of lumbar laminectomy + fusion History of orthopedic surgery R thumb fusion (2003) History of procedure for peripheral vascular disease (~01/2020) Right Lower Extremity Angiogram with Intervention, CUT OFF MACHINE HELPER Left Popliteal Artery, Mechanical Closure Left Femoral Artery--Dr. Raymond @ [facility] History of procedure for peripheral vascular disease (~12/2019) Left Lower Extremity Angiogram, Percutaneous Transluminal Angioplasty and Stenting of Left Popliteal Artery, Mechanical Closure of Right Femoral Artery--Dr. Raymond @ [facility] History of removal of cyst (~02/2021) from back of neck---under local anesthesia History of right knee surgery (~10/26/19) right knee manipulation under anesthesia @ [facility] History of tooth extraction History of total abdominal hysterectomy and bilateral salpingo-oophorectomy History of total knee replacement Right TKA (07/28/19): SAB at L2/3 (x1 attempt) + PNB at [facility]. No issues per post-op anesthesia progress note. Nausea and vomiting after administration of anesthetic agent S/P thyroid biopsy THYROID NODULE Status post placement of cardiac pacemaker Family History Other Adopted Social History Smoking Status: Never smoker Second Hand Exposure: No; Hx Alcohol Use: No Hx Substance Use: No Preferred Language: Japanese Communication Ability: Effective Regional Cra Required: No Beliefs That Will Affect Care: None Current Living Situation: Spouse Feels Safe at Home: Yes Assistive Devices: CPAP, Denture - Upper and Glasses Review of Systems Review of Systems: All systems reviewed & are unremarkable except as noted in HPI & below Constitutional: no fever, no chills and no sweats Respiratory: no cough and no dyspnea Cardiovascular: no chest pain, no dyspnea and no orthopnea Gastrointestinal: no abdominal pain, no nausea and no vomiting Musculoskeletal: as per Subjective / HPI Physical Exam Physical Exam: HT: 5ft 2in WT: 104.2kg Constitutional: WD/WN, vitals as above no acute distress Respiratory: normal respiratory effort, lungs clear to auscultation no respiratory distress, no labored breathing and does not use accessory muscles Cardiovascular: Rate/Rhythm: + irregularly irregular Gastrointestinal (Abdomen): normal bowel sounds, soft, nontender, no hepatosplenomegaly Musculoskeletal: Knee: + knee abnormal to inspection (Left Knee-), + effusion (+1 effusion), + limited ROM of knee (ROM 0/3/110), + knee ROM with crepitation, + joint line tenderness (medial joint line) and + Ligia's sign positive; no deformity, no skin erythema, no ecchymosis, no valgus laxity, no varus laxity, anterior drawer test negative, Jarrell's sign negative and pivot shift test negative Results & Data Results & Data ([facility]) Diagnostic Findings Left Knee X-ray: left knee series confirms degenerative changes to the left knee, greatest medial compartments and patellofemoral joint, showing joint space narrowing, osteophyte formation and subchondral sclerosis. no acute bony pathology noted. stent noted popliteal area
[~2022-01-31 09:19] MED LIST changes: -ACET325T96 PO; +ACETAMINOPHEN 500 MG TAB PO SCH; +BUPIVACAINE 0.5 % 5 MG/1 ML PF 10ML VIAL ONE; +CeleBREX 200 MG CAP PO SCH; +EPINEPHrine INJ 1 MG/ML AMP ONE; +FAMOTIDINE 20 MG TAB PO SCH; -GABA-113 PO; +GABAPENTIN 300 MG CAP PO SCH; -HYDR-5688 PO; -HYDR25TA4 PO; +LIDOCAINE 2% 2 ML VIAL/AMP(20MG/ML) INFIL ONE; +LR 500ML BOLUS, THEN 15ML/HR IV SCH; -LSN40 PO; -METO50TA7 PO; +METOCLOPRAMIDE HCL 10 MG TABLET PO SCH; +MIDAZOLAM HCL 1 MG/ML 2ML VIAL ONE; +ONDANSETRON INJ 2 MG/ML 2 ML VIAL ONE; -PRAV20TA PO; +PROPOFOL IV EMULSION 10 MG/ML 20 ML VIAL IV ONE; +ROPIVACAINE 0.5% 5 MG/ML 30 ML VIAL ONE; +ROPIVACAINE 0.5% HCL/PF 150 MG, BUPIVACAINE 0.75% MPF 20 ML, EPINEPHrine 30MG/30ML (OR ... INSTIL SCH; +TRANEXAMIC ACID 1,000 MG **IV Intra-op IV SCH; +TRANEXAMIC ACID 1,000 MG **IV Pre-op IV SCH; -VERA240T20 PO; -WARF1TAB6 PO; -ZNTT/150 PO; +ceFAZolin 2000MG 2,000 MG/15 ML SYR IV SCH; +dexAMETHasone 4 MG TAB PO SCH; +fentaNYL citrate 100 MCG/2 ML VIAL ONE
[2022-01-31 10:35] LABS: INR 1.2 (0.9-1.1); Partial Thromboplastin Ratio 1.1; Partial Thromboplastin Time 30.8 Seconds (21.0-31.0); Prothrombin Time 13.1 Seconds (9.0-12.0)
--- NOTE | 2022-01-31 10:43 | History & Physical Bridge Note ---
Date of Service January 31, 2022 History & Physical Bridge Note I have examined the patient, reviewed the History & Physical and in the interval since the performance of the History & Physical I have noted the following changes of clinical significance: no changes noted
[2022-01-31] MEDS ORDERED: fentaNYL citrate 100 MCG/2 ML VIAL ONE ×2 (12:27→14:02)
[2022-01-31] MEDS ORDERED: HYDROmorphone INJ 2 MG/ML SYR/VIAL ONE (12:28)
[2022-01-31] MEDS ORDERED: ePHEDrine sulfate 50 MG/ML AMP IV PRN (13:01)
[2022-01-31] MEDS ORDERED: ONDANSETRON INJ 2 MG/ML 2 ML VIAL IV PRN ×2 (13:01→16:26)
[2022-01-31] MEDS ORDERED: FLUMAZENIL 0.1 MG/1 ML 10 ML VIAL IV PRN (13:01)
[2022-01-31] MEDS ORDERED: PROMETHAZINE HCL 12.5 MG in SODIUM CHLORIDE 0.9% 50 ML IV PRN (13:01)
[2022-01-31] MEDS ORDERED: fentaNYL citrate 100 MCG/2 ML VIAL IV PRN (13:01)
[2022-01-31] MEDS ORDERED: NALOXONE HCL 0.4 MG/1 ML VIAL/CARP IV PRN ×2 (13:01→16:26)
[2022-01-31] MEDS ORDERED: ATROPINE SULFATE 0.1 MG/ML 10ML SYR IV PRN (13:01)
[2022-01-31] MEDS ORDERED: LABETALOL HCL IV 5 MG/ML 20ML IV PRN (13:01)
--- NOTE | 2022-01-31 13:28 | Operative Report ---
Post Operative Report Pre & Post Diagnosis Operation Date: 01/31/22 12:20 Pre-Op Diagnosis: Left Knee Osteoarthritis morbid obesity Post-Op Diagnosis: Left Knee Osteoarthritis morbid obesity I identified the patient and participated in the time-out.: Yes Procedure Operation Date: 01/31/22 12:20 Actual Procedures p Left Total Knee Arthroplasty(Left) utilizing [employer] persona long block total knee arthroplasty size femur 5 tibia D polyten patella 28 oval- Carlos Riggs DO Surgeon Carlos Riggs DO Boat Assembler Priyank LEDESMA Estimated Blood Loss 5 Findings Consistent with Post-Op Diagnosis Patient presents with severe end-stage DJD with eburnated [id number] varus alignment subchondral cystic changes marginal osteophytes and moderate to large effusion Specimens Bone and cartilage Drains Medium bore Hemovac Anesthesia Type MAC Spinal Regional Complications none Disposition Accompanied Patient To Recovery: No Disposition: Recovery Room Indications Patient presents with severe end-stage tricompartmental degenerative joint disease of the left knee after failed attempted conservative management occluding physical therapy anti-inflammatories relative rest activity modification corticosteroid injection viscosupplementation above intraoperative findings were noted Description of Procedure After proper prepping and draping of the left lower extremity anterior midline incision was made over the region of the extensor extensor mechanism after meticulous hemostasis was obtained and maintained in subcutaneous tissues a medial parapatellar incision was made The patella was subluxed lateralward the medial lateral gutter were cleaned from any hypertrophic synovitis and scar tissue of the distal femoral block was placed and the distal femoral osteotomy cut was made subsequently the chamfers anterior and posterior osteotomy cuts were made utilizing the 4-in-1 block the tibia was subsequently subluxed anteriorward medial and ateral meniscal remnants were excised in their entirety remnants of the anterior and posterior cruciate ligaments were excised in their entirety excellent exposure of the proximal tibia was obtained the tibial osteotomy guide was placed on the proximal tibial osteotomy cut was made once again the knee was irrigated with copious amounts of sterile saline solution the patella was subsequently everted lateralward thickened scar tissue around the patella was removed the patella was subsequently cut utilizing a freehand technique and was drilled prepared for final preparation and placement of patella socially flexion-extension gaps were checked and the equal and symmetric trials were placed to the appropriate femoral and tibial trials with poly-spacer being placed for equal flexion and extension gaps and full range of motion including extension to 0 and flexion to 140 the trial components after having been taken to recovery range of motion was subsequently removed meticulous hemostasis was obtained and maintained subsequently a knee block injection of joint cocktail including ropivacaine 0.5% 150 mg. Bupivacaine 0.5% epinephrine 1-200,030 mL's toradol 30 mg dexamethasone 4 mg ketamine 10 mg clonidine 100 micrograms normal saline solution 30 mg was infiltrated into the soft tissues of the posterior knee medial lateral gutters and periosteal synovium special attention was paid to protect neurovascular structures at all times subsequently trial components having been removed the knee was irrigated with sterile saline solution. debris was removed the proximal tibia was subsequently prepared and was made ready for the placement of the tibial component tibial component was also cemented and tamped into position the femoral component was subsequently placed and cemented in the position the patellar component was subsequently cemented in position because hemostasis once again obtained and maintained wound having been thoroughly irrigated with debridement and debridement lavage was performed as well as a medial parapatellar incision closed with #1 Vicryl in interrupted fashion subcutaneous was closed with #2 Vicryl skin was closed with skin clips. PA-C was necessary for prepping and drapping as well as wound closure of deep fascia Sub cutaneous tissue and skin and was necessary for the case. A sterile compressive dressing was placed patient was taken to recovery in stable condition of report dictated by Oneil I attest to the content of the Intraoperative Record and any orders documented therein. Any exceptions are noted below.Due to the complex nature of the procedure, the entire surgery was performed with the operational assistance of Priyank LEDESMA The community assistant, under direct supervision, was involved in the actual performance of all aspects of the surgical procedure including hemostasis, tissue retraction and incision, instrument management, patient positioning, and wound closure.The patient is 104.1 kgwith a BMI of 42. The patient's habitus did contribute to significant technical difficulty requiring extra time. Additional help was necessary in order to position the patient safely. The use of specialized (longer, deeper) retractors and/or instruments were needed. Due to this, the procedure took 20 minutes longer than the standard total knee arthroplasty." I attest to the content of the Intraoperative Record and any orders documented therein. Any exceptions are noted below.
[2022-01-31] MEDS ORDERED: PHENYLEPHRINE 100MCG/ML 5ML SYR ONE (13:32)
[2022-01-31] MEDS ORDERED: LABETALOL HCL IV 5 MG/ML 20ML IV ONE ×5 (13:59→14:00)
--- NOTE | 2022-01-31 14:43 | XRay Report ---
XR knee LT 1 or 2V routine HISTORY: 76 years-old Female Surgical Post Op [the total joint arthroplasty COMPARISON: None TECHNIQUE: 2 views of the left knee FINDINGS: Total joint arthroplasty and patella resurfacing demonstrates satisfactory alignment. No acute fractu re or unexpected opaque foreign body. Surgical drainage catheter is noted. Arterial stent graft is pr esent along with arterial calcifications. IMPRESSION: Total joint arthroplasty with expected postoperative changes. ACT 112: Negative or not required by law. The above report was generated using voice recognition software. It may contain grammatical, syntax o r spelling errors. Electronically signed by: Godfrey Montes M.D. 01/31/2022 2:42 PM
--- NOTE | 2022-01-31 15:13 | Anesthesiology Progress Note ---
Date of Service January 31, 2022 Anesthesia Post Procedure Vital Signs Vital Signs: Temp Pulse Pulse Resp BP BP Pulse Ox 01/31/22 15:10 92 H 18 128/76 93 01/31/22 15:00 36.3 C L 92 H 12 130/70 94 01/31/22 14:50 91 H 12 127/69 93 01/31/22 14:40 91 H 12 125/62 93 01/31/22 14:30 89 12 122/71 93 01/31/22 14:20 93 H 12 117/77 93 01/31/22 14:14 36.5 C 88 16 120/69 93 01/31/22 09:49 37 C 71 20 130/81 97 Transfer of Care Handoff Completed per policy Notes Mental Status: alert / awake / arousable Patient Amnestic to Procedure: Yes Nausea / Vomiting: adequately controlled Pain: adequately controlled Airway Patency, RR, SpO2: stable & adequate BP & HR: stable & adequate Hydration State: stable & adequate Anesthetic Complications: no major complications apparent
[2022-01-31] MEDS ORDERED: HYDROCODONE/ACETAMOPHEN 5/325MG TAB PO PRN (16:26)
[2022-01-31] MEDS ORDERED: HYDROmorphone INJ 0.5 MG/0.5 ML SYR IV PRN (16:26)
[2022-01-31] MEDS ORDERED: MAGNESIUM HYDROXIDE SUSP 30 ML UDC PO PRN (16:26)
[2022-01-31] MEDS ORDERED: bisacodyL 10 MG SUPP PR PRN (16:26)
[2022-01-31] MEDS: SODIUM CHLORIDE 0.9% 1000ML 1,000 ML IV SCH (16:53)
--- NOTE | 2022-01-31 17:12 | Hospitalist Consultation ---
Date of Consultation January 31, 2022 Assessment & Plan (1) Atrial fibrillation: 76yo F with a hx of HTN, Afib on coumadin, DJD, RLE claudication w hx lumbar decompressive laminectomy, and gerd who presented for scheduled total R knee arthroplasty. We are consulted for management of underlying medical comorbidities. Left OA status post total knee arthroplasty Pain control adequate postop Weightbearing instructions, pain control per primary team Neurovascularly intact DVT PPx: See warfarin below Atrial flutter on coumadin w/ sick sinus syndrome and pacemaker in place Patient has held Coumadin since Saturday, goal INR normally 23 INR 01/31 1.2 Rate controlled with metoprolol 100 mg twice daily. This was recently increased from 100/75 mg to her outpatient commercial illustrator for high flutter burden. Records in [facility] updated. Dose for tonight adjusted to 100 mg. Resume warfarin today, will have 5 mg dose then resume home dosing regimen with INR checks and goal of [address] - CHRISTOPHER 01/17/22: normal LVSF, EF 55-60%. Bioprosthetic AV normal. Hypertension Resume lisinopril 02/01 AM Continue metoprolol as noted Continue verapamil to 40 mg p.o. every evening. Hold for hypotension. GERD Continue famotidine 20 mg p.o. twice daily No allergies Continue loratadine 10 mg daily Hyperlipidemia Continue pravastatin 40 mg daily History of lumbar stenosis with neurogenic claudication status post past decompressive lumbar laminectomy No acute symptoms, pain adequately controlled, neurovascularly intact No acute management at this time History of CKD 3 - Past history of GFR 45 in 2019, this has improved - On review preop creatinine less than 1, estimated GFR 78 BMP in a.m. No medication adjustments required for clearance at this time Lisinopril as noted Hx Celiac Sprue - By antibody panel with past anemia - Diet adjusted to Gluten free - Preop hgb 13, MCV 94 LEO - CPAP qHS - Pt did not bring home machine, order for hospital unit placed Pre-DM - A1C 6.6% 12/2021 - Diet controlled. BSG fasting 113. - BSG checks AC/HS, may stop if post-prandials within goal. Add SSI if needed. Goal 100-140 DVT prophylaxis: Warfarin Diet: Heart healthy Code Status: Full Code (2) HTN (hypertension): (3) Dyslipidemia: (4) GERD (gastroesophageal reflux disease): (5) Lumbar stenosis with neurogenic claudication: (6) Hx of decompressive lumbar laminectomy: (7) Arthritis of knee, left: (8) CKD (chronic kidney disease) stage 3, GFR 30-59 ml/min: (9) Carotid stenosis: (10) Hypertension: (11) Sleep apnea: History of Present Illness Attending Physician: Carlos Riggs DO History of Present Illness 76yo F with a hx of HTN, Afib on coumadin, DJD, RLE claudication w hx lumbar decompressive laminectomy, and gerd who presented for scheduled total R knee arthroplasty. We are consulted for management of underlying medical comorbidities. Zulema is seen at the bedside postprocedure, is still fairly sedate from an esthesia and nauseous. Awakens easily and answers questions intermittently before falling back asleep. Denies any pain. Denies chest pain, chest pressure, shortness of breath, difficulty breathing. Endorses nausea without vomiting. Is not hungry. Reports she has had issues with prolonged nausea and sedation coming out of anesthesia multiple times in the past. Reports she did not take her lisinopril this morning. Normally takes metoprolol tartrate 100 mg p.o. twice daily, did take this at home this morning. Falls asleep between questions, some collateral obtained from her who is at bedside. By chart review: Aflutter on coumadin 2013 AV valve replacement biograft for severe symtpmatic Celiac Sprue Sleep Apnea on CPAP CHRISTOPHER 01/17/22: normal LVSF, EF 55-60%. Bioprosthetic AV normal. MTP increased to 100mg BID due to device interrogation with high aflutter burden by outpatient cardiology. Low cardiac risk preop, recommended if BP low to wean verapamil first. Med list per outpatient provider: Pravastatin 40 Lisino 40 Verapamil ER 240 Warfarin Famotidince 20 BID Loratadine 10mg daily Medical History: Reviewed Medications: Reviewed Surgical History: Reviewed Allergies: Reviewed Social History: Denies tobacco, recreational drug use. Rare etoh use. Surrogate DM would be Alexey. Code Status: Full Code Allergies Allergy/AdvReac Type Severity Reaction Status Date / Time oxycodone AdvReac Intermediate Nausea, Verified 01/31/22 09:41 hallucinations Home Medications Medication Instructions Recorded Confirmed Type lisinopril 40 mg tablet (Zestril) 40 mg PO QAM 06/23/19 01/31/22 History metoprolol tartrate 50 mg tablet 50 mg PO BID 06/23/19 01/31/22 History pravastatin 40 mg tablet 40 mg PO QPM 06/23/19 01/31/22 History (Pravachol) verapamil 240 mg tablet,extended 240 mg PO QPM 06/23/19 01/31/22 History release (Calan SR) warfarin 1 mg tablet 1 mg PO QPM 06/23/19 01/31/22 History acetaminophen 500 mg tablet 1,000 mg PO Q8 PRN #90 tab 07/29/19 01/31/22 Rx cholecalciferol (vitamin D3) 50 50 mcg PO QAM 12/29/21 01/31/22 History mcg (2,000 unit) tablet (Vitamin D3) loratadine 10 mg tablet 10 mg PO QAM 12/29/21 01/31/22 History Patient History Medical History (Updated 01/31/22 @ 17:42 by Sundeep Overton MD) Anemia Atrial fibrillation follows with [facility], anticoagulated Carotid stenosis s/p left CEA (2008); at least 50-69% stenosis of R ICA on 2017 doppler CKD (chronic kidney disease) stage 3, GFR 30-59 ml/min Diverticular disease h/o diverticulitis last episode 11/2021 dietary induced per pt GERD (gastroesophageal reflux disease) controlled, stable per pt History of basal cell cancer nose s/p Mohs History of bicuspid aortic valve s/p AVR (2013) History of blood transfusion with back fusion History of uterine cancer SHENG-BSO Hyperlipidemia Hypertension controlled, stable per pt IBS (irritable bowel syndrome) Morbid obesity with BMI of 40.0-44.9, adult Osteoarthritis Presence of cardiac pacemaker Implanted 2009 (2/2 bradycardia/SN dysfunction). CAPPTURE. Replaced 2018) [place] [facility] [place]osis Sleep apnea CPAP-compliant Surgical History History of aortic valve replacement 2013 History of appendectomy History of basal cell carcinoma (BCC) excision History of x2 History of cardiac cath 2013 ([place]) > no stents History of colonoscopy History of esophagogastroduodenoscopy (EGD) History of left-sided carotid endarterectomy 2008 History of lumbar laminectomy + fusion History of orthopedic surgery R thumb fusion (2003) History of procedure for peripheral vascular disease (~01/2020) Right Lower Extremity Angiogram with Intervention, MOLDING PROCESS TECHNICIAN Left Popliteal Artery, Mechanical Closure Left Femoral Artery--Dr. Raymond @ [facility] History of procedure for peripheral vascular disease (~12/2019) Left Lower Extremity Angiogram, Percutaneous Transluminal Angioplasty and Stenting of Left Popliteal Artery, Mechanical Closure of Right Femoral Artery--Dr. Raymond @ [facility] History of removal of cyst (~02/2021) from back of neck---under local anesthesia History of right knee surgery (~10/26/19) right knee manipulation under anesthesia @ [facility] History of tooth extraction History of total abdominal hysterectomy and bilateral salpingo-oophorectomy History of total knee replacement Right TKA (07/28/19): SAB at L2/3 (x1 attempt) + PNB at [facility]. No issues per post-op anesthesia progress note. Nausea and vomiting after administration of anesthetic agent S/P thyroid biopsy THYROID NODULE Status post placement of cardiac pacemaker Family History Other Adopted Social History Smoking Status: Never smoker Second Hand Exposure: No; Do You Dip or Chew Tobacco: No; Tobacco Cessation Education Requested by Patient: No Hx Alcohol Use: No Hx Substance Use: No Preferred Language: Lebanese Communication Ability: Effective Senior Network Security Engineer Required: No Beliefs That Will Affect Care: None Current Living Situation: Spouse Other Information That Helps Us Care for You: No Feels Safe at Home: Yes Safety Concerns: Feels Safe At This Time Assistive Devices: CPAP, Denture - Upper and Glasses Assistive Devices Comment: partial upper Review of Systems Review of Systems: All systems reviewed & are unremarkable except as noted in HPI & below Physical Exam Physical Exam: General: A&Ox3. NAD. Cooperative. Sedated recovering from anesthesia, awakens easily before falling back asleep HEENT: Atraumatic, normocephalic. PERLAA. Vision/hearing grossly intact. Pulm: CTAB A&P. -wheezes, -rales, -rhonchi. Symmetrical chest rise. No increase in work of breathing. No respiratory distress. Cardiac: RRR, +SM. Radial pulses intact and symmetrical. Abdominal: Nontender, nondistended, soft. BS present. Extremities: Able to wiggle toes bilaterally, sensation to soft touch intact in hands and feet without asymmetry. Quality Assurance Group Leader strength 5/5 bilaterally. Left knee in postop dressing and ice pack. Cap refill brisk in hallux bilaterally. Results & Data Results & Data ([facility]) Vital Signs (Past 12 Hours) Vital Signs Temp Pulse Pulse Resp BP BP Pulse Ox 01/31/22 16:45 36.5 C 94 H 16 118/65 95 01/31/22 16:32 36.6 C 94 H 18 124/82 96 01/31/22 16:00 92 H 12 106/69 93 01/31/22 15:50 94 H 12 104/57 L 93 01/31/22 15:40 36.3 C L 92 H 12 109/66 93 01/31/22 15:30 93 H 18 110/55 L 93 01/31/22 15:20 93 H 12 121/70 93 01/31/22 15:10 92 H 18 128/76 93 01/31/22 15:00 36.3 C L 92 H 12 130/70 94 01/31/22 14:50 91 H 12 127/69 93 01/31/22 14:40 91 H 12 125/62 93 01/31/22 14:30 89 12 122/71 93 01/31/22 14:20 93 H 12 117/77 93 01/31/22 14:14 36.5 C 88 16 120/69 93 01/31/22 09:49 37 C 71 20 130/81 97 PG Care Time/CCT Total # of Minutes Spent Total Time Spent with Patient: Total time spent is greater than 50% in coordination of care (as documented) at patient's floor/unit and/or counseling patient: Coding Level of Care Code 63015 Inpt Consult Level 4 Diagnoses Atrial fibrillation I48.91 HTN (hypertension) I10 Dyslipidemia E78.5 GERD (gastroesophageal reflux disease) K21.9 Lumbar stenosis with neurogenic claudication M48.062 Hx of decompressive lumbar laminectomy Z98.890 Arthritis of knee, left M17.12 CKD (chronic kidney disease) stage 3, GFR 30-59 ml/min N18.3 Carotid stenosis I65.29 Hypertension I10 Sleep apnea G47.30
[2022-01-31] MEDS ORDERED: WARFARIN SOD 5 MG TAB PO ONE (18:00)
[2022-01-31] MEDS: ceFAZolin 2000MG 2,000 MG/15 ML SYR IV SCH (20:06)
[2022-01-31] MEDS: DOCUSATE SODIUM 100 MG CAP PO SCH (20:06)
[2022-01-31] MEDS: METOPROLOL TARTRATE 100 MG TAB PO SCH (20:07)
[2022-01-31] MEDS ORDERED: SENNA 8.6 MG TAB PO SCH (21:00)
[2022-01-31] MEDS ORDERED: METOPROLOL TARTRATE 50 MG TAB PO SCH (21:00)
[2022-01-31] MEDS ORDERED: PRAVASTATIN SOD 40 MG TAB PO SCH (21:00)
[2022-01-31] MEDS ORDERED: VERAPAMIL HCL 240 MG TABCR PO SCH (21:00)
[2022-02-01] MEDS: SODIUM CHLORIDE 0.9% 1000ML 1,000 ML IV SCH (03:27)
[2022-02-01] MEDS: ceFAZolin 2000MG 2,000 MG/15 ML SYR IV SCH (05:09)
[2022-02-01 06:22] LABS: Hematocrit (blood only) 33.7 % (34.1-44.9); Hemoglobin 11.1 g/dl (12.0-16.0); Mean Corpuscular Hemoglobin 31.4 pg (25.0-34.0); Mean Corpuscular Hgb Conc 32.9 g/dL (32.0-36.0); Mean Corpuscular Volume 95.2 fL (80.0-100.0); Mean Platelet Volume 9.8 fL (9.4-12.3); Platelet Count 179 K/uL (130-400); RDW Coefficient of Variation 13.5 % (11.5-14.5); RDW Standard Deviation 47.5 fL (36.4-46.3); Red Blood Count 3.54 M/uL (3.93-5.22); White Blood Count 10.14 K/ul (4.8-10.8)
[2022-02-01 06:33] LABS: INR 1.3 (0.9-1.1); Prothrombin Time 13.9 Seconds (9.0-12.0)
[2022-02-01 06:41] LABS: BUN Creatinine Ratio 29.2 (10-20); Calcium 8.5 mg/dl (8.5-10.1); Creatinine Clr Calc Pharmacy 77.6 ml/min; Est GFR (African American) 95.6 ml/min; Est GFR (Non-African American) 82.5 ml/min; Potassium 4.5 mmol/L (3.5-5.1)
[2022-02-01] MEDS ORDERED: LORATADINE 10 MG TAB PO SCH (09:00)
[2022-02-01] MEDS ORDERED: MULTIVITAMIN TAB PO SCH (09:00)
[2022-02-01] MEDS ORDERED: lisinopril 40 MG TAB PO SCH (09:00)
[2022-02-01] MEDS ORDERED: CHOLECALCIFEROL 1,000 UNITS 25 MCG TAB PO SCH (09:00)
[2022-02-01] MEDS: METOPROLOL TARTRATE 100 MG TAB PO SCH (09:06)
[2022-02-01] MEDS: DOCUSATE SODIUM 100 MG CAP PO SCH (09:07)
--- NOTE | 2022-02-01 11:14 | Orthopedic Progress Note ---
Date of Service February 01, 2022 Assessment & Plan (1) Arthritis of knee, left: Plan: POD 1 s/p Left TKA PT/OT protocols. WBAT. DVT prophylaxis - Warfarin (INR 1.3) no need for bridging per Med Service. SCD's, KEITH's. Pain management as written. DC planning - services upon dc. Admission and Anticipated Discharge Date Admission Date: January 31, 2022 Subjective POD 1 Pt sitting in her chair at bedside. Just finished her PT session. States she had a bit of LH at the end of the session. Quickly cleared. Feeling well overall. No other complaints. Pain controlled. Physical Exam Physical Exam: Dressings C/D/I. Calves soft,NT. NV intact. Toes mobile. Good DF/PF of the left foot. Hemovac drainage 50ml from previous shift. Results & Data ([facility]) Vital Signs (Past 12 Hours) Vital Signs Temp Pulse Resp BP Pulse Ox 02/01/22 07:25 36.6 C 102 H 18 108/58 L 97 02/01/22 02:45 36.4 C L 81 17 139/73 94 Laboratory Results Laboratory Results WBC 10.14 K/ul (4.8-10.8) 02/01/22 06:08 RBC 3.54 M/uL (3.93-5.22) L 02/01/22 06:08 Hgb 11.1 g/dl (12.0-16.0) L 02/01/22 06:08 Hct 33.7 % (34.1-44.9) L 02/01/22 06:08 MCV 95.2 fL (80.0-100.0) 02/01/22 06:08 MCH 31.4 pg (25.0-34.0) 02/01/22 06:08 MCHC 32.9 g/dL (32.0-36.0) 02/01/22 06:08 RDW Std Deviation 47.5 fL (36.4-46.3) H 02/01/22 06:08 RDW Coeff of Cammie 13.5 % (11.5-14.5) 02/01/22 06:08 Plt Count 179 K/uL (130-400) 02/01/22 06:08 MPV 9.8 fL (9.4-12.3) 02/01/22 06:08 PT 13.9 Seconds (9.0-12.0) H 02/01/22 06:08 INR 1.3 (0.9-1.1) H 02/01/22 06:08 APTT 30.8 Seconds (21.0-31.0) 01/31/22 10:01 PTT Ratio 1.1 01/31/22 10:01 Sodium 138 mmol/L (136-145) 02/01/22 06:08 Potassium 4.5 mmol/L (3.5-5.1) 02/01/22 06:08 Chloride 105 mmol/L (98-107) 02/01/22 06:08 Carbon Dioxide 27 mmol/L (21-32) 02/01/22 06:08 Anion Gap 6 (3-11) 02/01/22 06:08 BUN 21 mg/dl (6-23) 02/01/22 06:08 Creatinine 0.72 mg/dl (0.6-1.2) 02/01/22 06:08 Est Cr Clr Drug Dosing 77.6 ml/min 02/01/22 06:08 Est GFR ( Amer) 95.6 ml/min 02/01/22 06:08 Est GFR (Non-Af Amer) 82.5 ml/min 02/01/22 06:08 BUN/Creatinine Ratio 29.2 (10-20) H 02/01/22 06:08 Glucose 176 mg/dl (70-99(Fasting)) H 02/01/22 06:08 POC Glucose 157 mg/dl (70-99) H 02/01/22 08:08 Calcium 8.5 mg/dl (8.5-10.1) 02/01/22 06:08 SARS-CoV-2, RNA, NAAT NEGATIVE (NEGATIVE) 01/31/22 09:30 Impressions Knee X-Ray 01/31/22 14:30 XR knee LT 1 or 2V routine HISTORY: 76 years-old Female Surgical Post Op [the total joint arthroplasty COMPARISON: None TECHNIQUE: 2 views of the left knee FINDINGS: Total joint arthroplasty and patella resurfacing demonstrates satisfactory alig nment. No acute fracture or unexpected opaque foreign body. Surgical drainage catheter is noted. Arterial stent graft is present along with arterial calcifications. IMPRESSION: Total joint arthroplasty with expected postoperative changes. ACT 112: Negative or not required by law. The above report was generated using voice recognition software. It may contain grammatical, syntax or spelling errors. Electronically signed by: Godfrey Montes M.D. 01/31/2022 2:42 PM
[2022-02-01] MEDS ORDERED: ORTHO WARFARIN NOMOGRAM SCH (17:00)
--- NOTE | 2022-02-02 14:21 | Discharge Summary ---
Date of Service February 02, 2022 Admission HPI Per Admitting Provider Zulema is a 76 year old female who complains of left knee pain, presents for pre- op evaluation prior to a left total knee replacement by Dr Riggs at [facility]. she complains of pain and stiffness in her left knee. Currently the patient states that the symptoms are moderate-severe and rated 7/10. The pain is described as aching, sharp and throbbing. her symptoms are aggravated by ascending stairs, daily activities, first steps while awake walking. she is unable to take NSAIDs due to Coumadin. she has been treated with previous visco and cortisone injections in the past without much relief. she has had a right TKA by Dr Bony sharma Admission Exam Per Admitting Provider Physical Exam: HT: 5ft 2in WT: 104.2kg Constitutional: WD/WN, vitals as above no acute distress Respiratory: normal respiratory effort, lungs clear to auscultation no respiratory distress, no labored breathing and does not use accessory muscles Cardiovascular: Rate/Rhythm: + irregularly irregular Gastrointestinal (Abdomen): normal bowel sounds, soft, nontender, no hepatosplenomegaly Musculoskeletal: Knee: + knee abnormal to inspection (Left Knee-), + effusion (+1 effusion), + limited ROM of knee (ROM 0/3/110), + knee ROM with crepitation, + joint line tenderness (medial joint line) and + Ligia's sign positive; no deformity, no skin erythema, no ecchymosis, no valgus laxity, no varus laxity, anterior drawer test negative, Jarrell's sign negative and pivot shift test negative Principal Diagnosis Left Knee Osteoarthritis Discharge Data Allergies Allergy/AdvReac Type Severity Reaction Status Date / Time oxycodone AdvReac Intermediate Nausea, Verified 01/31/22 09:41 hallucinations Consultations 01/31/22 16:26 Consult Hospitalist Routine Procedures Performed Operation Date: 01/31/22 12:20 Actual Procedures p Left Total Knee Arthroplasty(Left) - Carlos Riggs DO Ordered Studies 01/31/22 05:00 US - OR guided needle placemen Routine Hospital Course (1) Arthritis of knee, left: Patient:ZULEMA DUNN Admit Date:01/31/22 MR#:[id number] Att Phy:Carlos Riggs,D.O. Acct ID:[id number] Lynsey Phy:Kaya Anne PA-C Date:1945 Fam Phy: Age:76 Location:3W Sex:F Room/Bed:[facility] cc: ~ *NOTICE TO RECEIVING GREEN PARTY/AGENCY This information is strictly Confidential and protected under [place] law. [place] law prohibits you from making any further disclosure of this information unless further disclosure is expressly permitted by the written consent of the person to whom it pertains or is authorized by law. A general authorization for the release of medical or other information is not sufficient for this purpose. Hospital accepts no responsibility if the information is made available to any other person, INCLUDING THE PATIENT. Date of Service February 01, 2022 Assessment & Plan (1) Arthritis of knee, left: Plan: POD 1 s/p Left TKA PT/OT protocols. WBAT. DVT prophylaxis - Warfarin (INR 1.3) no need for bridging per Med Service. SCD's, KEITH's. Pain management as written. DC planning - HH services upon dc. Admission and Anticipated Discharge Date Admission Date: January 31, 2022 Addendum: Pt progressed well with PT. Discussed with Dr. Overton. Reduce Lisinopril to 20mg daily, daily BP monitoring; Follow up with PCP next week for recheck and adjust meds as needed. Stable for DC. Subjective POD 1 Pt sitting in her chair at bedside. Just finished her PT session. States she had a bit of LH at the end of the session. Quickly cleared. Feeling well overall. No other complaints. Pain controlled. Physical Exam Physical Exam: Dressings C/D/I. Calves soft,NT. NV intact. Toes mobile. Good DF/PF of the left foot. Hemovac drainage 50ml from previous shift. Results & Data ([facility]) Vital Signs (Past 12 Hours) Vital Signs Temp Pulse Resp BP Pulse Ox 02/01/22 07:25 36.6 C 102 H 18 108/58 L 97 02/01/22 02:45 36.4 C LA 81 17 139/73 94 Laboratory Results Laboratory Results WBC 10.14 K/ul (4.8-10.8) 02/01/22 06:08 RBC 3.54 M/uL (3.93-5.22) L 02/01/22 06:08 Hgb 11.1 g/dl (12.0-16.0) L 02/01/22 06:08 Hct 33.7 % (34.1-44.9) L 02/01/22 06:08 MCV 95.2 fL (80.0-100.0) 02/01/22 06:08 MCH 31.4 pg (25.0-34.0) 02/01/22 06:08 MCHC 32.9 g/dL (32.0-36.0) 02/01/22 06:08 RDW Std Deviation 47.5 fL (36.4-46.3) H 02/01/22 06:08 RDW Coeff of Cammie 13.5 % (11.5-14.5) 02/01/22 06:08 Plt Count 179 K/uL (130-400) 02/01/22 06:08 MPV 9.8 fL (9.4-12.3) 02/01/22 06:08 PT 13.9 Seconds (9.0-12.0) H 02/01/22 06:08 INR 1.3 (0.9-1.1) H 02/01/22 06:08 APTT 30.8 Seconds (21.0-31.0) 01/31/22 10:01 PTT Ratio 1.1 01/31/22 10:01 Sodium 138 mmol/L (136-145) 02/01/22 06:08 Potassium 4.5 mmol/L (3.5-5.1) 02/01/22 06:08 Chloride 105 mmol/L (98-107) 02/01/22 06:08 Carbon Dioxide 27 mmol/L (21-32) 02/01/22 06:08 Anion Gap 6 (3-11) 02/01/22 06:08 BUN 21 mg/dl (6-23) 02/01/22 06:08 Creatinine 0.72 mg/dl (0.6-1.2) 02/01/22 06:08 Est Cr Clr Drug Dosing 77.6 ml/min 02/01/22 06:08 Est GFR ( Amer) 95.6 ml/min 02/01/22 06:08 Est GFR (Non-Af Amer) 82.5 ml/min 02/01/22 06:08 BUN/Creatinine Ratio 29.2 (10-20) H 02/01/22 06:08 Glucose 176 mg/dl (70-99(Fasting)) H 02/01/22 06:08 POC Glucose 157 mg/dl (70-99) H 02/01/22 08:08 Calcium 8.5 mg/dl (8.5-10.1) 02/01/22 06:08 SARS-CoV-2, RNA, NAAT NEGATIVE (NEGATIVE) 01/31/22 09:30 Impressions Knee X-Ray 01/31/22 14:30 XR knee LT 1 or 2V routine HISTORY: 76 years-old Female Surgical Post Op [the total joint arthroplasty COMPARISON: None TECHNIQUE: 2 views of the left knee FINDINGS: Total joint arthroplasty and patella resurfacing demonstrates satisfactory alignment. No acute fracture or unexpected opaque foreign body. Surgical drainage catheter is noted. Arterial stent graft is present along with arterial calcifications. IMPRESSION: Total joint arthroplasty with expected postoperative changes. Total Time Total Time Spent Total Time Spent (In Minutes): 10 Discharge Plan Discharge Items Patient Disposition: Home - Home Health Services Reason For Visit: Left Knee Osteoarthritis Discharge Diagnosis: Left Knee Osteoarthritis Activity: Per Instructions section Weightbearing: Left weightbearing Weightbearing Comment: as tolerated with walker Non-emergency contact: Surgeon Call non-emergency contact if: your pain is not controlled, your temperature is above 101.5, your wound has increased redness and your wound has increased drainage Follow-up/Referrals: Carlos Riggs DO [Surgeon] - 02/16/22 10:40 am (Follow-up with Dr. Riggs in 2 weeks from the day of your surgery.) Kaya Anne PA-C [Primary Care Provider] - 02/09/22 10:30 am Diet: Heart Healthy Ambulatory Orders: Prothrombin Time INR (Routine) Timeframe: [id number] Location: Determined by Patient Ordered By: Priyank Robertson Attending Provider Instructions: Home Health services will draw your INR on Saturday the of this month. Results will be sent to your Primary Care Physician. The Hospitalist service is recommending that you decrease your Lisinopril tablet to 20mg daily due to low blood pressure while in the hospital. PLEASE CHECK YOUR BLOOD PRESSURE DAILY. IF YOUR SYSTOLIC BLOOD PRESSURE (TOP NUMBER) IS 110 OR LOWER, PLEASE DO NOT TAKE YOUR LISINOPRIL THAT MORNING. PLEASE ARRANGE A FOLLOW UP APPOINTMENT TO SEE YOUR PRIMARY CARE PHYSICIAN NEXT WEEK FOR A BLOOD PRESSURE CHECK AND TO RECHECK YOU INR. ACTIVITY RECOMMENDATIONS: SELF CARE INSTRUCTIONS AFTER TOTAL KNEE REPLACEMENT A. You may need to continue a physical therapy program after discharge from the hospital. There are several options available to you. Your doctor will assist you in selecting the best one for you. 1. An out-patient facility 2 to 3 times a week for therapy or home therapy. 2. Continue working on all exercises taught to you in the hospital. Your goals should be to increase bending of your knee to 90 degrees and beyond and to fully straighten your knee. B. You may progress at your own pace from walking with a walker or crutches to a cane; then to no assistive devices. C. Make walking a part of your daily routine. Be up as much as comfortable with rest periods throughout the day. Rest with leg elevation is very important. Use the ice wrap frequently for the first 3-4 weeks. D. There are no restrictions on activities. You may ride in a car, shop, participate in custom designer and all social activities. E. Wear the long elastic stockings (KEITH hose) 20 hours a day for 2 weeks after surgery. They can be removed several times a day for laundering and for a bath. F. You may shower, no tub baths until cleared by your doctor. SPECIAL CARE INSTRUCTIONS: VERY IMPORTANT TO READ AND REVIEW A. There are a few signs you need to watch for after you are home. Call [facility] if you notice any of the followin. Increased severe knee pain. Some pain is expected especially when you exercise. 2. Increased swelling in your leg or knee; pain or swelling of the calf muscle in either lower leg. 3. Any fluid drainage from the incision. 4. Shortness of breath or chest pain. B. Please call [facility] at if you have any concerns or questions about your operation or recovery. The doctor or his nurse will return your call promptly. C. You must take antibiotics before dental work, bladder, bowel or other surgery. Your doctor will provide you with a permanent care to carry describing this precaution. IMPORTANT: * RESUME YOUR WARFARIN (COUMADIN ) SCHEDULE. YOU WILL NEED TO HAVE YOUR INR DRAWN REGULARLY TO ASSESS YOUR BLOOD THINNING. * CALL IF INCREASED PAIN, REDNESS, DRAINAGE OR FEVER GREATER THAT 101. * WEAR KEITH HOSE 20 HOURS PER DAY FOR 2 WEEKS. * KOJO Dressing - This is a large suction dressing covering your incision. This will help pull any excess drainage from the wound and allow your incision to heal properly. You may shower with this if you can keep the unit outside of the shower. If any bleeding or leakage is noted please call your doctor's office. This will remain on your incision for 7 days and then should be removed. This can be done yourself or by the home nursing staff if applicable. The entire unit is disposable once removed. Once removed, keep incision clean and dry. If redness or drainage is noted, please call your surgeon. . *Once your kojo dressing has been removed, follow the wound care instructions below. *DERMABOND Prineo- This is a mesh tape dressing that is covered with glue. It should remain in place until the incision is properly healed, usually 10-14 days. This dressing is designed to naturally slough off. You may trim the excess mesh tape as it peels off. Incision may be briefly wet in a shower. Dry immediately by blotting with a clean, dry towel. Do not bath or swim until instructed by your doctor. Do not scratch, rub, or pick at the dressing. Do not apply any topical ointments or lotions until dressing is completely removed and/or instructed by your doctor. There may be a small piece of suture material at one end of your incision. Do not pull or trim this. If it is bothersome or catching on clothing, you may cover it with a band-aid. FOLLOW UP VISIT: If appointment is not already scheduled: Please call [facility] to make a follow-up appointment for 2 weeks after your surgery at . Stand-Alone Forms: [employer], Smoking Cessation Medications and DC Order Prescriptions: New cefadroxil 500 mg capsule 500 mg PO BID Qty: 28 RF: 1 hydrocodone-acetaminophen 5-325 mg tablet 1 - 2 tab PO Q6H MDD 8 tabs PRN (Reason: pain) Qty: 30 RF: 0 polyethylene glycol 3350 [Miralax] 17 gram powder in packet 17 g PO DAILY PRN (Reason: constipation) Qty: 5 RF: 0 lisinopril 20 mg tablet 20 mg PO DAILY 10 Days Qty: 10 RF: 0 Continued pravastatin [Pravachol] 40 mg Tablet 40 mg PO QPM RF: 0 metoprolol tartrate 50 mg Tablet 100 mg PO BID RF: 0 verapamil [Calan SR] 240 mg Tablet Extended Release 240 mg PO QPM RF: 0 warfarin 1 mg Tablet 1 mg PO QPM RF: 0 cholecalciferol (vitamin D3) [Vitamin D3] 50 mcg (2,000 unit) Tablet 50 mcg PO QAM RF: 0 loratadine 10 mg Tablet 10 mg PO QAM RF: 0 Discontinued lisinopril [Zestril] 40 mg Tablet 40 mg PO QAM RF: 0 acetaminophen 500 mg Tablet 1,000 mg PO Q8 PRN (Reason: pain/fevers) Qty: 90 RF: 0 Discharge Orders: Discharge Order (Routine); Ordered 02/01/22 Ordered By: Priyank Mandujano Admission Data Admit Date/Time: 01/31/22 14:30 Attending Provider: Carlos Riggs Admit Provider: Carlos Riggs Primary Care Provider: Kaya Anne Other Providers: Carlos Ordonez ; [facility] Other Interventions: Discharge Summary Assessment (RN) Last Done: 02/01/22 13:36
== END 2022-02-01 13:38 | disposition home health service (06) ==
LOC: ASU 09:19 → PACUINP 09:19 → 3W 16:23